=== PATIENT | female | born 1995 | race Caucasian/White ===

== ENCOUNTER 2020-05-30 08:05 | Inpatient (IN) ==
[2020-05-30] MEDS ORDERED: OXYTOCIN 30 UNITS/500 ML BAG IV PRN (08:12)
--- NOTE | 2020-05-30 08:19 | History & Physical Report ---
Date of Service May 30, 2020 Assessment & Plan (1) Supervision of normal intrauterine in primigravida: (2) Need for rhogam due to Rh negative mother: (3) Insulin controlled gestational diabetes mellitus (GDM) during , antepartum: (4) Group beta Strep positive: admit, iv, labs. plan glucoses through labor. pcn for gbs. pitocin induction, arom at later time. fhts categ 1. rhogam eval pp. Admission and Anticipated Discharge Date Admission Date: May 30, 2020 History of Present Illness Chief Complaint: planned induction of labor for gdm on insulin Primary Care Provider: Beryl Ragsdale MD 24yo at 39+wks ega with edc 06/03/20 presents to L&D with above cc. She denies rom, vb. +FM. no regular ctx Had balloon placed last evening for unfavorable cervix. She felt a lot of cramping about 3am and then that got better. Has not fallen out. Took 1/2 her insulin this am with her light breakfast. Fasting glucose today was 90. PNC c/b 1. rh neg, had rhogam, eval pp 2. gdm on insulin 3. oligo in early , resolved at 28wks 4. obesity 5. unable to view heart on routine anatomy, echo wnl 6. GBS positive. PNL rh neg, ri, gbs positive OBH: g1 GYNH: nl paps, no stds Allergies Allergy/AdvReac Type Severity Reaction Status Date / Time No Known Allergies Allergy Verified 05/27/20 09:39 Home Medications Medication Instructions Recorded Confirmed Type prenat.vits,dallin,gbs-[id number]-nrcob 1 tab PO DAILY 12/14/19 05/29/20 History acetone (urine) test #50 ea 01/19/20 05/27/20 Rx insulin aspart U-100 100 unit/mL 8 unit SUBCUT BID #15 ml 04/08/20 05/29/20 Rx (3 mL) subcutaneous pen pen needle, diabetic 32 gauge x #100 ea 04/11/20 05/27/20 Rx 32" breast pump #1 ea 05/10/20 05/27/20 Rx insulin NPH isoph U-100 human 12 unit SUBCUT QPM 05/29/20 05/29/20 History [Novolin N Flexpen] Patient History Medical History (Updated 05/30/20 @ 08:36 by Rocio Squires MD, FACOG) Need for rhogam due to Rh negative mother Oligohydramnios antepartum Surgical History (Updated 12/14/19 @ 13:22 by Debbie Paulino) S/P wisdom tooth extraction Social History Smoking Status: Former smoker Hx Alcohol Use: No Hx Substance Use: No Preferred Language: Pashto marital status: Single marital status details: contact pts mom Joanne [phone] Current Living Situation: Significant Other Current Living Situation Comment: lives with FOB, no pets. 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 Feels Safe at Home: Yes Physical Exam Constitutional: WD/WN, vitals as above Respiratory: normal respiratory effort, lungs clear to auscultation Cardiovascular: Rate/Rhythm: regular rate and regular rhythm Gastrointestinal (Abdomen): soft gravid nt, efw 7-8# Musculoskeletal: no edema nontender calves Neurologic: grossly normal Psychiatric: A+Ox3, euthymic affect Genitourinary: Manual OB Exam: + cervical dilation 3 cm, + cervical effacement 50% and + station (posterior) -2 OB Exam Monitor Tracing: + external FHT monitor used (155 mod variability), + external uterine monitor used (irreg), + category I and + normal FHT variability balloon was in vagina and deflated and removed from vagina. Coding Level of Care Code None Diagnoses Supervision of normal intrauterine in primigravida Z34.00 Need for rhogam due to Rh negative mother Z29.13 Insulin controlled gestational diabetes mellitus (GDM) during , antepartum O24.414 Group beta Strep positive B95.1
[2020-05-30] MEDS ORDERED: PENICILLIN G POTASSIUM 6 MU in DEXTROSE 5% 250 ML IV ONE (08:30)
[2020-05-30 08:52] LABS: Hematocrit (blood only) 37.4 % (37-47); Hemoglobin 12.6 g/dL (12.0-16.0); Mean Corpuscular Hemoglobin 26.8 pg (25-34); Mean Corpuscular Hgb Conc 33.7 g/dL (32-36); Mean Corpuscular Volume 79.6 fL (80-100); Mean Platelet Volume 12.8 fL (7.4-10.4); Platelet Count 170 K/uL (130-400); RDW Coefficient of Variation 14.6 % (11.5-14.5); RDW Standard Deviation 42.1 fL (36.4-46.3); White Blood Count 10.37 K/uL (4.8-10.8)
[2020-05-30] MEDS: LACTATED RINGER'S 1,000 ML IV PRN ×3 (09:00→16:40)
[2020-05-30 09:12] LABS: Alanine Aminotransferase 15 U/L (12-78); Albumin Level 2.6 gm/dl (3.4-5.0); Aspartate Aminotransferase 23 U/L (15-37); BUN Creatinine Ratio 9.4 (10-20); Bilirubin Direct < 0.1 mg/dl (0-0.2); Blood Urea Nitrogen 8 mg/dl (7-18); Calcium 8.4 mg/dl (8.5-10.1); Carbon Dioxide 18 mmol/L (21-32); Chloride 111 mmol/L (98-107); Est GFR (African American) 112.8; Est GFR (Non-African American) 97.3; Glucose 146 mg/dl (70-99); Potassium 3.7 mmol/L (3.5-5.1); Sodium 139 mmol/L (136-145)
[2020-05-30 09:15] LABS: Albumin Globulin Ratio 0.6 (0.9-2); Alkaline Phosphatase 132 U/L (45-117); Bilirubin,Total 0.4 mg/dl (0.2-1); Globulin 4.1 gm/dl (2.5-4.0); Total Protein 6.7 gm/dl (6.4-8.2)
[2020-05-30] MEDS: OXYTOCIN 30 UNITS/500 ML BAG IV PRN (09:30)
[2020-05-30] MEDS: PENICILLIN G POTASSIUM 3 MU in DEXTROSE 5% 100 ML IV PRN ×3 (13:03→20:34)
--- NOTE | 2020-05-30 13:38 | Labor Progress Brief Note ---
Date of Service May 30, 2020 Subjective Reason For Note: Routine Evaluation not too uncomfortable with uterine cramps. Assessment & Plan (1) Encounter for induction of labor: (2) Group beta Strep positive: (3) Insulin controlled gestational diabetes mellitus (GDM) during , antepartum: (4) Need for rhogam due to Rh negative mother: will see how arom helps labor pattern. fhts categ 1. c/w pit and pcn. Admission and Anticipated Discharge Date Admission Date: May 30, 2020 Physical Exam Constitutional: WD/WN, vitals as above Genitourinary: Manual OB Exam: + cervical dilation 3 cm, + cervical effacement 50%, + station -2 and + amniotic fluid (AROM clear) clear OB Exam Monitor Tra cing: + external FHT monitor used (120 mod variability), + external uterine monitor used (q3, pit at 15), + category I and + normal FHT variability Results & Data ([facility]) Vital Signs (Past 12 Hours) Vital Signs Temp Pulse Resp BP 05/30/20 13:32 84 138/87 05/30/20 13:02 81 113/55 L 05/30/20 12:31 98.6 F 85 18 127/64 05/30/20 12:03 93 H 129/64 05/30/20 11:32 85 140/63 05/30/20 11:00 85 126/68 05/30/20 10:31 87 122/71 05/30/20 09:31 99 H 135/87 05/30/20 08:55 97.5 F L 113 H 20 135/82 05/30/20 08:22 97.5 F L 113 H 20 135/82 Coding Level of Care Code None Diagnoses Encounter for induction of labor Z34.90 Group beta Strep positive B95.1 Insulin controlled gestational diabetes mellitus (GDM) during , antepartum O24.414 Need for rhogam due to Rh negative mother Z29.13
[2020-05-30] MEDS ORDERED: BUPIVACAINE 0.25% 30 ML VIAL ONE (16:13)
[2020-05-30] MEDS ORDERED: SODIUM CHLORIDE 0.9% INJ 10 ML VIAL ONE (16:13)
[2020-05-30] MEDS ORDERED: ePHEDrine sulfate 50 MG/ML AMP ONE (16:13)
[2020-05-30] MEDS ORDERED: fentaNYL citrate 100 MCG/2 ML VIAL ONE (16:14)
[2020-05-30] MEDS ORDERED: fentaNYL 2MCG/ML ROPIVACAINE 1.25MG/ML 100 ML BAG EPI ONE (16:14)
[2020-05-30] MEDS ORDERED: ONDANSETRON INJ 2 MG/ML 2 ML VIAL IV PRN (16:38)
[2020-05-30] MEDS ORDERED: diphenhydrAMINE 50 MG/ML VIAL IV PRN (16:38)
[2020-05-30] MEDS ORDERED: NALOXONE HCL 1 MG in SODIUM CHLORIDE 0.9% 1000ML 1,000 ML IV PRN (16:38)
[2020-05-30] MEDS ORDERED: NALOXONE HCL 0.4 MG/1 ML VIAL/CARP IV PRN (16:38)
[2020-05-30] MEDS ORDERED: ePHEDrine sulfate 50 MG/ML AMP IV PRN (16:38)
--- NOTE | 2020-05-30 16:40 | Anesthesiology Consultation ---
Date of Service May 30, 2020 Assessment & Plan (1) Encounter for pre-operative examination: Chart Review Chart Review: Acceptable Risk for Surgery and Patient NOT seen in Pre Admission Testing Consults Requested none History Height/Weight Height: 5 ft 5 in Weight: 106.594 kg Allergies Allergy/AdvReac Type Severity Reaction Status Date / Time No Known Allergies Allergy Verified 05/27/20 09:39 Medications Home Medications Medication Instructions Recorded Confirmed Last Taken prenat.vits,dallin,git-qtpm-uyasg 1 tab PO DAILY 12/14/19 05/30/20 05/30/20 07:00 acetone (urine) test #50 ea 01/19/20 05/27/20 Unknown insulin aspart U-100 100 unit/mL 8 unit SUBCUT BID #15 ml 04/08/20 05/30/20 05/30/20 07:00 (3 mL) subcutaneous pen pen needle, diabetic 32 gauge x #100 ea 04/11/20 05/27/20 Unknown 5/32" breast pump #1 ea 05/10/20 05/27/20 Unknown insulin NPH isoph U-100 human 12 unit SUBCUT QPM 05/29/20 05/30/20 05/29/20 22:30 [Novolin N Flexpen] Active Medications Generic Name Dose Route Start Last Admin Trade Name Freq PRN Reason Stop Dose Admin Oxytocin 30 units in 500 mls @ 17 mls/hr 05/30/20 08:12 05/30/20 14:05 Pitocin IV 06/01/20 08:11 1.02 units/hr .Q24H PRN 17 mls/hr Labor Induction/Augmentation Titration Protocol 1.02 UNITS/HR Penicillin G Potassium 3 mu/ 106 mls @ 100 mls/hr 05/30/20 08:12 05/30/20 13:03 Dextrose IV 06/09/20 08:11 100 mls/hr Q4H PRN Administration Give until delivery Lactated Ringer's 1,000 mls @ 125 mls/hr 05/30/20 08:12 05/30/20 16:39 Lr IV 06/01/20 08:11 125 mls/hr .Q8H PRN Administration L&D Protocol Protocol Past Medical History Medical History Need for rhogam due to Rh negative mother Oligohydramnios antepartum Exercise / Class Metabolic Activity II 4-5 Yardwork/Stairs/Walk up hill Past Surgical History Surgical History S/P wisdom tooth extraction Past Anesthesia History No Hx of Anesthesia Complications and No Family Hx of Anesthesia Complications History of PONV No Hx of PONV and No Hx of Motion Sickness Social History Smoking Status: Former smoker Do You Dip or Chew Tobacco: No Hx Alcohol Use: No Hx Substance Use: No substance use type: does not use Physical Exam Vital Signs Last Vital Signs Temp 37.0 C 05/30/20 12:31 Pulse 86 05/30/20 16:38 Resp 18 05/30/20 12:31 BP 144/83 H 05/30/20 16:38 Testing Laboratory Results 05/30/20 08:25 05/30/20 08:25 05/30/20 05/30/20 05/30/20 14:45 12:21 09:17 POC Glucose 83 66 L* 135 H
[2020-05-30] MEDS: fentaNYL 2MCG/ML ROPIVACAINE 1.25MG/ML 100 ML BAG EPI PRN (16:53)
--- NOTE | 2020-05-30 18:18 | Labor Progress Brief Note ---
Date of Service May 30, 2020 Subjective Reason For Note: Routine Evaluation comfortable with epidural Assessment & Plan (1) Encounter for induction of labor: (2) Group beta Strep positive: (3) Insulin controlled gestational diabetes mellitus (GDM) during , antepartum: c/w pit, will use iupc to help guide dosing by mvu's. last glucose check 84. c/w pcn for gbs. fhts categ 1. Admission and Anticipated Discharge Date Admission Date: May 30, 2020 Physical Exam Constitutional: WD/WN, vitals as above Genitourinary: Manual OB Exam: + cervical dilation 3 cm, + cervical effacement 50% and + station (posterior) -2 OB Exam Monitor Tracing: + external FHT monitor used (130 mod variability), + external uterine monitor used (q3-4. pit at 19), + category I and + normal FHT variability IUPC placed. Results & Data ([facility]) Vital Signs (Past 12 Hours) Vital Signs Temp Pulse Resp BP Pulse Ox 05/30/20 18:13 68 136/72 05/30/20 18:11 84 99 05/30/20 18:06 90 98 05/30/20 18:01 94 H 96 05/30/20 17:57 98.2 F 16 05/30/20 17:56 98.2 F 82 18 98 05/30/20 17:55 82 123/92 05/30/20 17:51 78 142/60 H 96 05/30/20 17:47 94 H 132/68 05/30/20 17:46 89 94 05/30/20 17:41 89 95 05/30/20 17:40 94 H 134/87 05/30/20 17:36 84 97 05/30/20 17:35 99 H 133/77 05/30/20 17:31 98 H 157/131 H 96 05/30/20 17:26 79 98 05/30/20 17:22 96 H 132/79 05/30/20 17:21 88 97 05/30/20 17:19 93 H 126/75 05/30/20 17:16 95 H 136/81 98 05/30/20 17:13 109 H 123/84 05/30/20 17:11 102 H 96 05/30/20 17:10 100 H 119/78 05/30/20 17:07 101 H 139/79 05/30/20 17:06 94 H 96 05/30/20 17:04 99 H 156/90 H 05/30/20 17:01 102 H 155/89 H 96 05/30/20 16:58 92 H 157/91 H 94 05/30/20 16:56 95 H 94 05/30/20 16:55 101 H 159/89 H 05/30/20 16:52 102 H 94 05/30/20 16:51 93 H 95 05/30/20 16:46 91 H 98 05/30/20 16:38 97.9 F 86 18 144/83 H 05/30/20 16:30 82 138/75 05/30/20 16:02 79 127/58 L 05/30/20 15:31 90 140/83 05/30/20 15:00 91 H 130/80 05/30/20 14:30 97.9 F 85 18 124/78 05/30/20 14:07 102 H 135/87 05/30/20 13:32 84 138/87 05/30/20 13:02 81 113/55 L 05/30/20 12:31 98.6 F 85 18 127/64 05/30/20 12:03 93 H 129/64 05/30/20 11:32 85 140/63 05/30/20 11:00 85 126/68 05/30/20 10:31 87 122/71 05/30/20 09:31 99 H 135/87 05/30/20 08:55 97.5 F L 113 H 20 135/82 05/30/20 08:22 97.5 F L 113 H 20 135/82 Coding Level of Care Code None Diagnoses Encounter for induction of labor Z34.90 Group beta Strep positive B95.1 Insulin controlled gestational diabetes mellitus (GDM) during , antepartum O24.414
--- NOTE | 2020-05-30 22:56 | Labor Progress Brief Note ---
Date of Service May 30, 2020 Subjective Reason For Note: Routine Evaluation comfortable, did get some sleep Assessment & Plan (1) Group beta Strep positive: (2) Encounter for induction of labor: (3) Insulin controlled gestational diabetes mellitus (GDM) during , antepartum: (4) Need for rhogam due to Rh negative mother: c/w pit, good cx change. fhts categ 1. pcn for gbs. Admission and Anticipated Discharge Date Admission Date: May 30, 2020 Physical Exam Constitutional: WD/WN, vitals as above Genitourinary: Manual OB Exam: + cervical dilation 5 cm, + cervical effacement (75%) and + station -1 OB Exam Monitor Tracing: + external FHT monitor used, + intra-uterine pressure catheter used (adeq mvus pit at 21), + category I and + normal FHT variability Results & Data ([facility]) Vital Signs (Past 12 Hours) Vital Signs Temp Pulse Resp BP Pulse Ox 05/30/20 22:51 80 98 05/30/20 22:46 77 94 05/30/20 22:41 81 118/57 L 94 05/30/20 22:36 85 94 05/30/20 22:31 82 95 05/30/20 22:26 81 119/59 L 96 05/30/20 22:24 84 94 05/30/20 22:21 85 97 05/30/20 22:16 82 97 05/30/20 22:13 80 114/59 L 05/30/20 22:12 83 94 05/30/20 22:11 78 97 05/30/20 22:06 79 96 05/30/20 22:01 88 96 05/30/20 21:59 90 135/60 05/30/20 21:56 86 97 05/30/20 21:51 85 98 05/30/20 21:46 90 99 05/30/20 21:43 85 131/59 L 05/30/20 21:41 84 98 05/30/20 21:36 88 98 05/30/20 21:31 84 93 05/30/20 21:27 78 117/56 L 05/30/20 21:26 76 94 05/30/20 21:23 89 94 05/30/20 21:21 90 93 05/30/20 21:16 82 94 05/30/20 21:13 76 93 05/30/20 21:11 82 94 05/30/20 21:06 81 94 05/30/20 21:01 80 95 05/30/20 21:00 98.1 F 18 05/30/20 20:58 78 116/57 L 05/30/20 20:56 79 95 05/30/20 20:51 75 95 05/30/20 20:46 76 97 05/30/20 20:43 82 114/55 L 05/30/20 20:41 75 96 05/30/20 20:36 75 97 05/30/20 20:31 83 98 05/30/20 20:28 69 142/77 H 05/30/20 20:26 76 99 05/30/20 20:21 82 96 05/30/20 20:16 97 H 97 05/30/20 20:13 96 H 132/86 05/30/20 20:11 90 98 05/30/20 20:06 80 99 05/30/20 20:01 95 H 99 05/30/20 19:59 110 H 140/87 05/30/20 19:56 98 H 95 05/30/20 19:51 88 95 05/30/20 19:46 91 H 96 05/30/20 19:43 93 H 146/83 H 05/30/20 19:41 81 96 05/30/20 19:36 98 H 95 05/30/20 19:31 80 97 05/30/20 19:27 93 H 106/64 05/30/20 19:26 90 96 05/30/20 19:21 85 97 05/30/20 19:16 89 96 05/30/20 19:12 97.9 F 86 18 137/80 05/30/20 19:11 101 H 98 05/30/20 19:06 76 99 05/30/20 19:02 87 94 05/30/20 19:01 80 95 05/30/20 18:58 109 H 125/82 05/30/20 18:56 74 96 05/30/20 18:51 85 96 05/30/20 18:46 95 H 95 05/30/20 18:44 87 115/79 05/30/20 18:41 98 H 96 05/30/20 18:36 75 94 05/30/20 18:32 84 94 05/30/20 18:31 88 96 05/30/20 18:30 104 H 143/91 H 05/30/20 18:26 84 95 05/30/20 18:21 95 H 96 05/30/20 18:16 83 97 05/30/20 18:13 68 136/72 05/30/20 18:11 84 99 05/30/20 18:06 90 98 05/30/20 18:01 94 H 96 05/30/20 17:57 98.2 F 82 16 123/92 96 05/30/20 17:56 98.2 F 82 18 98 05/30/20 17:55 82 123/92 05/30/20 17:51 78 142/60 H 96 05/30/20 17:47 94 H 132/68 05/30/20 17:46 89 94 05/30/20 17:41 89 95 05/30/20 17:40 94 H 134/87 05/30/20 17:36 84 97 05/30/20 17:35 99 H 133/77 05/30/20 17:31 98 H 157/131 H 96 05/30/20 17:26 79 98 05/30/20 17:22 96 H 132/79 05/30/20 17:21 88 97 05/30/20 17:19 93 H 126/75 05/30/20 17:16 95 H 136/81 98 05/30/20 17:13 109 H 123/84 05/30/20 17:11 102 H 96 05/30/20 17:10 100 H 119/78 05/30/20 17:07 101 H 139/79 05/30/20 17:06 94 H 96 05/30/20 17:04 99 H 156/90 H 05/30/20 17:01 102 H 155/89 H 96 05/30/20 16:58 92 H 157/91 H 94 05/30/20 16:56 95 H 94 05/30/20 16:55 101 H 159/89 H 05/30/20 16:52 102 H 94 05/30/20 16:51 93 H 95 05/30/20 16:46 91 H 98 05/30/20 16:38 97.9 F 86 18 144/83 H 05/30/20 16:30 82 138/75 05/30/20 16:02 79 127/58 L 05/30/20 15:31 90 140/83 05/30/20 15:00 91 H 130/80 05/30/20 14:30 97.9 F 85 18 124/78 05/30/20 14:07 102 H 135/87 05/30/20 13:32 84 138/87 05/30/20 13:02 81 113/55 L 05/30/20 12:31 98.6 F 85 18 127/64 05/30/20 12:03 93 H 129/64 05/30/20 11:32 85 140/63 05/30/20 11:00 85 126/68 Coding Level of Care Code None Diagnoses Group beta Strep positive B95.1 Encounter for induction of labor Z34.90 Insulin controlled gestational diabetes mellitus (GDM) during , antepartum O24.414 Need for rhogam due to Rh negative mother Z29.13
[2020-05-31] MEDS: PENICILLIN G POTASSIUM 3 MU in DEXTROSE 5% 100 ML IV PRN ×5 (00:55→17:24)
[2020-05-31] MEDS: LACTATED RINGER'S 1,000 ML IV PRN ×2 (03:01→13:08)
[2020-05-31] MEDS ORDERED: BUPIVACAINE 0.25% 30 ML VIAL ONE (04:23)
--- NOTE | 2020-05-31 04:53 | Communication Note ---
Date of Service: May 31, 2020 Called by nursing as pt rating contractions 8/10. Bolused a total of 10ml 0.5% bupivicaine in divided doses. BP stable. Pain very much improved 10-15 min after bolus. No complications.
--- NOTE | 2020-05-31 06:35 | Obstetrical Progress Note ---
Date of Service May 31, 2020 Assessment & Plan (1) Encounter for induction of labor: - PNL: Rh neg (rhogam received), RI, GBS pos (omtrapartum PCN), COVID neg - Feels well today. Eating well, voiding well, ambulating well - Pain well controlled with ibuprofen 600mg Q4H PRN - Routine care -- OOB, ambulation, diet progression as tolerated - After discharge will have 6 week follow-up with Dr. Squires (2) Group beta Strep positive: (3) Need for rhogam due to Rh negative mother: Alfonzo Ballard is a 24 y/o female who is PPD #1 following at 39+ weeks. She reports feeling well overall this morning. [_]abdominal cramping and [_]/10 pain well managed on analgesics. Voiding [_]. Tolerating meals overnight without difficulty. Patient has been able to ambulate some. [_] passing gas and [_] bowel movement. Has persistent lochia with [some] improvement this morning. Currently [] [bottle]. Review of Systems Denies fever or chills. Denies shortness of breath or cough. Denies chest pain. Denies breast pain. Denies dysuria. Denies leg pain or leg swelling. Denies headache or changes in vision. Physical Exam General: Alert, oriented. No acute distress. Cardiac: Regular rate and rhythm. No murmurs. Respiratory: Clear to auscultation bilaterally a/p, no wheezes/rales/rhonchi. No increased work of breathing. Symmetrical chest rise. No respiratory distress. Abdomen: Soft, nontender, nondistended. Bowel sounds present. Uterus: Uterine fundus firm, palpable 1 cm below umbilicus. Lower Extremities: No lower extremity edema or swelling. No deep calf pain. Yana's negative bilaterally. Results & Data ([facility]) Vital Signs (Past 12 Hours) Vital Signs Temp Pulse Resp BP Pulse Ox 05/31/20 06:29 94 H 94 05/31/20 06:26 96 H 95 05/31/20 06:25 106 H 154/89 H 05/31/20 06:22 105 H 94 05/31/20 06:21 98 H 94 05/31/20 06:16 99 H 94 05/31/20 06:11 92 H 144/87 H 94 05/31/20 06:06 101 H 94 05/31/20 06:05 96 H 94 05/31/20 06:01 100 H 93 05/31/20 05:57 97 H 18 143/83 H 05/31/20 05:56 96 H 93 05/31/20 05:51 100 H 93 05/31/20 05:46 100 H 92 05/31/20 05:41 93 H 93 05/31/20 05:40 99 H 141/69 H 05/31/20 05:36 98 H 92 05/31/20 05:31 105 H 93 05/31/20 05:30 96 H 144/74 H 05/31/20 05:26 93 H 93 05/31/20 05:21 101 H 92 05/31/20 05:16 99 H 93 05/31/20 05:11 96 H 92 05/31/20 05:06 102 H 92 05/31/20 05:01 101 H 93 05/31/20 04:56 104 H 94 05/31/20 04:51 91 H 93 05/31/20 04:48 87 94 05/31/20 04:46 93 H 96 05/31/20 04:41 91 H 96 05/31/20 04:38 91 H 138/70 05/31/20 04:36 99 H 150/74 H 96 05/31/20 04:34 98 H 149/77 H 05/31/20 04:33 98 H 94 05/31/20 04:32 91 H 149/78 H 05/31/20 04:31 37.1 C 92 H 18 95 05/31/20 04:30 99 H 147/73 H 05/31/20 04:28 96 H 155/75 H 05/31/20 04:27 93 H 152/74 H 94 05/31/20 04:26 93 H 94 05/31/20 04:21 94 H 95 05/31/20 04:20 95 H 94 05/31/20 04:16 89 95 05/31/20 04:14 108 H 148/92 H 93 05/31/20 04:11 95 H 95 05/31/20 04:08 106 H 94 05/31/20 04:06 94 H 93 05/31/20 04:01 97 H 93 05/31/20 03:57 93 H 150/82 H 05/31/20 03:56 90 93 05/31/20 03:54 86 94 05/31/20 03:51 85 93 05/31/20 03:48 89 94 05/31/20 03:46 91 H 93 05/31/20 03:44 97 H 150/72 H 05/31/20 03:42 88 94 05/31/20 03:41 93 H 95 05/31/20 03:36 97 H 95 05/31/20 03:35 90 94 05/31/20 03:31 87 93 05/31/20 03:29 89 94 05/31/20 03:27 95 H 142/72 H 05/31/20 03:26 100 H 95 05/31/20 03:23 92 H 94 05/31/20 03:21 88 93 05/31/20 03:16 92 H 92 05/31/20 03:12 98 H 128/74 05/31/20 03:11 102 H 93 05/31/20 03:09 86 94 05/31/20 03:06 90 92 05/31/20 03:04 95 H 94 05/31/20 03:01 94 H 94 05/31/20 02:58 36.5 C 94 H 18 131/78 93 05/31/20 02:56 95 H 94 05/31/20 02:52 97 H 94 05/31/20 02:51 108 H 93 05/31/20 02:46 99 H 93 05/31/20 02:43 98 H 140/74 05/31/20 02:41 100 H 92 05/31/20 02:40 89 93 05/31/20 02:36 94 H 94 05/31/20 02:35 85 94 05/31/20 02:31 101 H 93 05/31/20 02:28 93 H 146/72 H 05/31/20 02:26 95 H 92 05/31/20 02:24 113 H 94 05/31/20 02:21 97 H 93 05/31/20 02:19 99 H 93 05/31/20 02:16 113 H 96 05/31/20 02:13 96 H 149/77 H 05/31/20 02:11 97 H 93 05/31/20 02:06 91 H 91 05/31/20 02:01 111 H 94 05/31/20 01:57 100 H 140/82 05/31/20 01:56 105 H 94 05/31/20 01:55 94 H 94 05/31/20 01:51 96 H 94 05/31/20 01:46 100 H 95 05/31/20 01:44 96 H 94 05/31/20 01:42 103 H 131/76 05/31/20 01:41 97 H 95 05/31/20 01:36 117 H 96 05/31/20 01:33 94 H 94 05/31/20 01:31 92 H 95 05/31/20 01:28 100 H 125/69 05/31/20 01:27 90 93 05/31/20 01:26 111 H 95 05/31/20 01:22 103 H 94 05/31/20 01:21 101 H 95 05/31/20 01:18 18 05/31/20 01:16 98 H 93 05/31/20 01:12 98 H 137/79 05/31/20 01:11 103 H 92 05/31/20 01:10 99 H 94 05/31/20 01:06 102 H 93 05/31/20 01:05 94 H 94 05/31/20 01:01 111 H 95 05/31/20 00:59 106 H 93 05/31/20 00:57 100 H 133/76 05/31/20 00:56 99 H 94 05/31/20 00:54 100 H 150/78 H 05/31/20 00:53 36.6 C 18 05/31/20 00:51 89 96 05/31/20 00:46 83 96 05/31/20 00:41 95 H 95 05/31/20 00:38 83 94 05/31/20 00:36 84 93 05/31/20 00:31 80 93 05/31/20 00:26 82 93 05/31/20 00:21 82 93 05/31/20 00:16 93 H 94 05/31/20 00:15 86 94 05/31/20 00:14 76 118/59 L 05/31/20 00:11 82 93 05/31/20 00:06 82 93 05/31/20 00:04 86 94 05/31/20 00:01 81 92 05/30/20 23:58 93 H 127/60 05/30/20 23:56 77 94 05/30/20 23:51 85 92 05/30/20 23:46 85 92 05/30/20 23:43 84 118/67 05/30/20 23:41 84 92 05/30/20 23:36 78 93 05/30/20 23:31 75 93 05/30/20 23:28 79 92 05/30/20 23:27 91 H 113/57 L 05/30/20 23:26 83 93 05/30/20 23:21 81 93 05/30/20 23:16 78 93 05/30/20 23:12 81 94 05/30/20 23:11 94 H 96 05/30/20 23:06 77 94 05/30/20 23:02 80 94 05/30/20 23:01 37.1 C 87 18 94 05/30/20 22:58 90 138/78 05/30/20 22:57 90 94 05/30/20 22:56 99 H 95 05/30/20 22:51 80 98 05/30/20 22:46 77 94 05/30/20 22:41 81 118/57 L 94 05/30/20 22:36 85 94 05/30/20 22:31 82 95 05/30/20 22:26 81 119/59 L 96 05/30/20 22:24 84 94 05/30/20 22:21 85 97 05/30/20 22:16 82 97 05/30/20 22:13 80 114/59 L 05/30/20 22:12 83 94 05/30/20 22:11 78 97 05/30/20 22:06 79 96 05/30/20 22:01 88 96 05/30/20 21:59 90 135/60 05/30/20 21:56 86 97 05/30/20 21:51 85 98 05/30/20 21:46 90 99 05/30/20 21:43 85 131/59 L 05/30/20 21:41 84 98 05/30/20 21:36 88 98 05/30/20 21:31 84 93 05/30/20 21:27 78 117/56 L 05/30/20 21:26 76 94 05/30/20 21:23 89 94 05/30/20 21:21 90 93 05/30/20 21:16 82 94 05/30/20 21:13 76 93 05/30/20 21:11 82 94 05/30/20 21:06 81 94 05/30/20 21:01 80 95 05/30/20 21:00 36.7 C 18 05/30/20 20:58 78 116/57 L 05/30/20 20:56 79 95 05/30/20 20:51 75 95 05/30/20 20:46 76 97 05/30/20 20:43 82 114/55 L 05/30/20 20:41 75 96 05/30/20 20:36 75 97 05/30/20 20:31 83 98 05/30/20 20:28 69 142/77 H 05/30/20 20:26 76 99 05/30/20 20:21 82 96 05/30/20 20:16 97 H 97 05/30/20 20:13 96 H 132/86 05/30/20 20:11 90 98 05/30/20 20:06 80 99 05/30/20 20:01 95 H 99 05/30/20 19:59 110 H 140/87 05/30/20 19:56 98 H 95 05/30/20 19:51 88 95 05/30/20 19:46 91 H 96 05/30/20 19:43 93 H 146/83 H 05/30/20 19:41 81 96 05/30/20 19:36 98 H 95 05/30/20 19:31 80 97 05/30/20 19:27 93 H 106/64 05/30/20 19:26 90 96 05/30/20 19:21 85 97 05/30/20 19:16 89 96 05/30/20 19:12 36.6 C 86 18 137/80 05/30/20 19:11 101 H 98 05/30/20 19:06 76 99 05/30/20 19:02 87 94 05/30/20 19:01 80 95 05/30/20 18:58 109 H 125/82 05/30/20 18:56 74 96 05/30/20 18:51 85 96 05/30/20 18:46 95 H 95 05/30/20 18:44 87 115/79 05/30/20 18:41 98 H 96 05/30/20 18:36 75 94
--- NOTE | 2020-05-31 06:53 | Labor Progress Brief Note ---
Date of Service May 31, 2020 Subjective Reason For Note: Routine Evaluation pt comfortable, can sense some ctx. Assessment & Plan (1) Encounter for induction of labor: (2) Group beta Strep positive: (3) Insulin controlled gestational diabetes mellitus (GDM) during , antepartum: (4) Need for rhogam due to Rh negative mother: will 1/2 pit and reelevate to try to get mvu's adeq. my exam is improved from my last. much more effaced and cephalic is low. will cont to try to advance labor. fhts categ 1. pcn for gbs pos. Admission and Anticipated Discharge Date Admission Date: May 30, 2020 Physical Exam Constitutional: WD/WN, vitals as above Genitourinary: Manual OB Exam: + cervical dilation (5-6), + cervical effacement 90% and + station 0 OB Exam Monitor Tracing: + external uterine monitor used (q3 mvu's inadeq, pit at 15), + intra-uterine pressure catheter used (mvu's inadeq, pit at 15), + category I and + normal FHT variability Results & Data ([facility]) Vital Signs (Past 12 Hours) Vital Signs Temp Pulse Resp BP Pulse Ox 05/31/20 06:46 92 H 97 05/31/20 06:42 106 H 144/81 H 05/31/20 06:41 99 H 94 05/31/20 06:36 97 H 94 05/31/20 06:35 98 H 94 05/31/20 06:31 92 H 94 05/31/20 06:29 94 H 94 05/31/20 06:26 96 H 95 05/31/20 06:25 106 H 154/89 H 05/31/20 06:22 105 H 94 05/31/20 06:21 98 H 94 05/31/20 06:16 99 H 94 05/31/20 06:11 92 H 144/87 H 94 05/31/20 06:06 101 H 94 05/31/20 06:05 96 H 94 05/31/20 06:01 100 H 93 05/31/20 05:57 97 H 18 143/83 H 05/31/20 05:56 96 H 93 05/31/20 05:51 100 H 93 05/31/20 05:46 100 H 92 05/31/20 05:41 93 H 93 05/31/20 05:40 99 H 141/69 H 05/31/20 05:36 98 H 92 05/31/20 05:31 105 H 93 05/31/20 05:30 96 H 144/74 H 05/31/20 05:26 93 H 93 05/31/20 05:21 101 H 92 05/31/20 05:16 99 H 93 05/31/20 05:11 96 H 92 05/31/20 05:06 102 H 92 05/31/20 05:01 101 H 93 05/31/20 04:56 104 H 94 05/31/20 04:51 91 H 93 05/31/20 04:48 87 94 05/31/20 04:46 93 H 96 05/31/20 04:41 91 H 96 05/31/20 04:38 91 H 138/70 05/31/20 04:36 99 H 150/74 H 96 05/31/20 04:34 98 H 149/77 H 05/31/20 04:33 98 H 94 05/31/20 04:32 91 H 149/78 H 05/31/20 04:31 98.8 F 92 H 18 95 05/31/20 04:30 99 H 147/73 H 05/31/20 04:28 96 H 155/75 H 05/31/20 04:27 93 H 152/74 H 94 05/31/20 04:26 93 H 94 05/31/20 04:21 94 H 95 05/31/20 04:20 95 H 94 05/31/20 04:16 89 95 05/31/20 04:14 108 H 148/92 H 93 05/31/20 04:11 95 H 95 05/31/20 04:08 106 H 94 05/31/20 04:06 94 H 93 05/31/20 04:01 97 H 93 05/31/20 03:57 93 H 150/82 H 05/31/20 03:56 90 93 05/31/20 03:54 86 94 05/31/20 03:51 85 93 05/31/20 03:48 89 94 05/31/20 03:46 91 H 93 05/31/20 03:44 97 H 150/72 H 05/31/20 03:42 88 94 05/31/20 03:41 93 H 95 05/31/20 03:36 97 H 95 05/31/20 03:35 90 94 05/31/20 03:31 87 93 05/31/20 03:29 89 94 05/31/20 03:27 95 H 142/72 H 05/31/20 03:26 100 H 95 05/31/20 03:23 92 H 94 05/31/20 03:21 88 93 05/31/20 03:16 92 H 92 05/31/20 03:12 98 H 128/74 05/31/20 03:11 102 H 93 05/31/20 03:09 86 94 05/31/20 03:06 90 92 05/31/20 03:04 95 H 94 05/31/20 03:01 94 H 94 05/31/20 02:58 97.7 F 94 H 18 131/78 93 05/31/20 02:56 95 H 94 05/31/20 02:52 97 H 94 05/31/20 02:51 108 H 93 05/31/20 02:46 99 H 93 05/31/20 02:43 98 H 140/74 05/31/20 02:41 100 H 92 05/31/20 02:40 89 93 05/31/20 02:36 94 H 94 05/31/20 02:35 85 94 05/31/20 02:31 101 H 93 05/31/20 02:28 93 H 146/72 H 05/31/20 02:26 95 H 92 05/31/20 02:24 113 H 94 05/31/20 02:21 97 H 93 05/31/20 02:19 99 H 93 05/31/20 02:16 113 H 96 05/31/20 02:13 96 H 149/77 H 05/31/20 02:11 97 H 93 05/31/20 02:06 91 H 91 05/31/20 02:01 111 H 94 05/31/20 01:57 100 H 140/82 05/31/20 01:56 105 H 94 05/31/20 01:55 94 H 94 05/31/20 01:51 96 H 94 05/31/20 01:46 100 H 95 05/31/20 01:44 96 H 94 05/31/20 01:42 103 H 131/76 05/31/20 01:41 97 H 95 05/31/20 01:36 117 H 96 05/31/20 01:33 94 H 94 05/31/20 01:31 92 H 95 05/31/20 01:28 100 H 125/69 05/31/20 01:27 90 93 05/31/20 01:26 111 H 95 05/31/20 01:22 103 H 94 05/31/20 01:21 101 H 95 05/31/20 01:18 18 05/31/20 01:16 98 H 93 05/31/20 01:12 98 H 137/79 05/31/20 01:11 103 H 92 05/31/20 01:10 99 H 94 05/31/20 01:06 102 H 93 05/31/20 01:05 94 H 94 05/31/20 01:01 111 H 95 05/31/20 00:59 106 H 93 05/31/20 00:57 100 H 133/76 05/31/20 00:56 99 H 94 05/31/20 00:54 100 H 150/78 H 05/31/20 00:53 97.9 F 18 05/31/20 00:51 89 96 05/31/20 00:46 83 96 05/31/20 00:41 95 H 95 05/31/20 00:38 83 94 05/31/20 00:36 84 93 05/31/20 00:31 80 93 05/31/20 00:26 82 93 05/31/20 00:21 82 93 05/31/20 00:16 93 H 94 05/31/20 00:15 86 94 05/31/20 00:14 76 118/59 L 05/31/20 00:11 82 93 05/31/20 00:06 82 93 05/31/20 00:04 86 94 05/31/20 00:01 81 92 05/30/20 23:58 93 H 127/60 05/30/20 23:56 77 94 05/30/20 23:51 85 92 05/30/20 23:46 85 92 05/30/20 23:43 84 118/67 05/30/20 23:41 84 92 05/30/20 23:36 78 93 05/30/20 23:31 75 93 05/30/20 23:28 79 92 05/30/20 23:27 91 H 113/57 L 05/30/20 23:26 83 93 05/30/20 23:21 81 93 05/30/20 23:16 78 93 05/30/20 23:12 81 94 05/30/20 23:11 94 H 96 05/30/20 23:06 77 94 05/30/20 23:02 80 94 05/30/20 23:01 98.8 F 87 18 94 05/30/20 22:58 90 138/78 05/30/20 22:57 90 94 05/30/20 22:56 99 H 95 05/30/20 22:51 80 98 05/30/20 22:46 77 94 05/30/20 22:41 81 118/57 L 94 05/30/20 22:36 85 94 05/30/20 22:31 82 95 05/30/20 22:26 81 119/59 L 96 05/30/20 22:24 84 94 05/30/20 22:21 85 97 05/30/20 22:16 82 97 05/30/20 22:13 80 114/59 L 05/30/20 22:12 83 94 05/30/20 22:11 78 97 05/30/20 22:06 79 96 05/30/20 22:01 88 96 05/30/20 21:59 90 135/60 05/30/20 21:56 86 97 05/30/20 21:51 85 98 05/30/20 21:46 90 99 05/30/20 21:43 85 131/59 L 05/30/20 21:41 84 98 05/30/20 21:36 88 98 05/30/20 21:31 84 93 05/30/20 21:27 78 117/56 L 05/30/20 21:26 76 94 05/30/20 21:23 89 94 05/30/20 21:21 90 93 05/30/20 21:16 82 94 05/30/20 21:13 76 93 05/30/20 21:11 82 94 05/30/20 21:06 81 94 05/30/20 21:01 80 95 05/30/20 21:00 98.1 F 18 05/30/20 20:58 78 116/57 L 05/30/20 20:56 79 95 05/30/20 20:51 75 95 05/30/20 20:46 76 97 05/30/20 20:43 82 114/55 L 05/30/20 20:41 75 96 05/30/20 20:36 75 97 05/30/20 20:31 83 98 05/30/20 20:28 69 142/77 H 05/30/20 20:26 76 99 05/30/20 20:21 82 96 05/30/20 20:16 97 H 97 05/30/20 20:13 96 H 132/86 05/30/20 20:11 90 98 05/30/20 20:06 80 99 05/30/20 20:01 95 H 99 05/30/20 19:59 110 H 140/87 05/30/20 19:56 98 H 95 05/30/20 19:51 88 95 05/30/20 19:46 91 H 96 05/30/20 19:43 93 H 146/83 H 05/30/20 19:41 81 96 05/30/20 19:36 98 H 95 05/30/20 19:31 80 97 05/30/20 19:27 93 H 106/64 05/30/20 19:26 90 96 05/30/20 19:21 85 97 05/30/20 19:16 89 96 05/30/20 19:12 97.9 F 86 18 137/80 05/30/20 19:11 101 H 98 05/30/20 19:06 76 99 05/30/20 19:02 87 94 05/30/20 19:01 80 95 05/30/20 18:58 109 H 125/82 05/30/20 18:56 74 96 Coding Level of Care Code None Diagnoses Encounter for induction of labor Z34.90 Group beta Strep positive B95.1 Insulin controlled gestational diabetes mellitus (GDM) during , antepartum O24.414 Need for rhogam due to Rh negative mother Z29.13
[2020-05-31] MEDS: fentaNYL 2MCG/ML ROPIVACAINE 1.25MG/ML 100 ML BAG EPI PRN ×2 (07:36→14:12)
--- NOTE | 2020-05-31 09:10 | Labor Progress Brief Note ---
Date of Service May 31, 2020 Subjective Doing ok, feeling a little bit of ctx pain in lower abd but tolerable. Assessment & Plan (1) Encounter for induction of labor: 24 y/o G1 at 39 4/7 wga, IOL for A2GDM VSS Fetus cat 1 Labor - pit at 19, halved earlier after went up to 29 overnight. Continue to titrate as MVUs not adequate, exam does not feel like molding, possibly asynclitic. Continue maternal repositioning GBS +, PCN Epidural in place (2) Insulin controlled gestational diabetes mellitus (GDM) during , antepartum: Will check BG now as it has been a while, will continue to monitor Admission and Anticipated Discharge Date Admission Date: May 30, 2020 Physical Exam Constitutional: WD/WN, vitals as above Respiratory: normal respiratory effort; no respiratory distress and no labored breathing Genitourinary: Manual OB Exam: + cervical dilation 5 cm, + cervical effacement 80% and + station 0 OB Exam Monitor Tracing: + external FHT monitor used, + intra-uterine pressure catheter used (MVUs inadequate, q3min) and + category I (130/mod/+accel/-decel) Results & Data ([facility]) Vital Signs (Past 12 Hours) Vital Signs Temp Pulse Resp BP Pulse Ox 05/31/20 09:01 105 H 97 05/31/20 08:56 73 133/87 97 05/31/20 08:54 74 94 05/31/20 08:51 76 96 05/31/20 08:46 81 94 05/31/20 08:42 65 93 05/31/20 08:41 104 H 138/64 96 05/31/20 08:36 86 94 05/31/20 08:33 71 94 05/31/20 08:31 98 H 97 05/31/20 08:26 78 94 05/31/20 08:25 83 130/67 05/31/20 08:22 100 H 94 05/31/20 08:21 78 94 05/31/20 08:16 75 94 05/31/20 08:15 98 H 94 05/31/20 08:12 88 136/67 05/31/20 08:11 78 94 05/31/20 08:09 74 94 05/31/20 08:06 80 94 05/31/20 08:04 81 94 05/31/20 08:01 98 H 95 03/16/21 07:58 76 94 05/31/20 07:56 94 H 127/72 95 05/31/20 07:53 82 94 05/31/20 07:51 105 H 95 05/31/20 07:47 69 93 05/31/20 07:46 78 96 05/31/20 07:42 70 125/66 05/31/20 07:41 81 96 05/31/20 07:36 81 96 05/31/20 07:31 87 97 05/31/20 07:26 88 131/61 97 05/31/20 07:21 86 95 05/31/20 07:17 85 94 05/31/20 07:16 84 95 05/31/20 07:11 89 129/67 95 05/31/20 07:06 90 97 05/31/20 07:01 87 97 05/31/20 06:56 97 H 136/80 94 05/31/20 06:51 97 H 96 05/31/20 06:46 92 H 97 05/31/20 06:42 106 H 144/81 H 05/31/20 06:41 99 H 94 05/31/20 06:36 97 H 94 05/31/20 06:35 98 H 94 05/31/20 06:31 92 H 94 05/31/20 06:29 94 H 94 05/31/20 06:26 96 H 95 05/31/20 06:25 106 H 154/89 H 05/31/20 06:22 105 H 94 05/31/20 06:21 98 H 94 05/31/20 06:16 99 H 94 05/31/20 06:15 98.1 F 18 05/31/20 06:11 92 H 144/87 H 94 05/31/20 06:06 101 H 94 05/31/20 06:05 96 H 94 05/31/20 06:01 100 H 93 05/31/20 05:57 97 H 18 143/83 H 05/31/20 05:56 96 H 93 05/31/20 05:51 100 H 93 05/31/20 05:46 100 H 92 05/31/20 05:41 93 H 93 05/31/20 05:40 99 H 141/69 H 05/31/20 05:36 98 H 92 05/31/20 05:31 105 H 93 05/31/20 05:30 96 H 144/74 H 05/31/20 05:26 93 H 93 05/31/20 05:21 101 H 92 05/31/20 05:16 99 H 93 05/31/20 05:11 96 H 92 05/31/20 05:06 102 H 92 05/31/20 05:01 101 H 93 05/31/20 04:56 104 H 94 05/31/20 04:51 91 H 93 05/31/20 04:48 87 94 05/31/20 04:46 93 H 96 05/31/20 04:41 91 H 96 05/31/20 04:38 91 H 138/70 05/31/20 04:36 99 H 150/74 H 96 05/31/20 04:34 98 H 149/77 H 05/31/20 04:33 98 H 94 05/31/20 04:32 91 H 149/78 H 05/31/20 04:31 98.8 F 92 H 18 95 05/31/20 04:30 99 H 147/73 H 05/31/20 04:28 96 H 155/75 H 05/31/20 04:27 93 H 152/74 H 94 05/31/20 04:26 93 H 94 05/31/20 04:21 94 H 95 05/31/20 04:20 95 H 94 05/31/20 04:16 89 95 05/31/20 04:14 108 H 148/92 H 93 05/31/20 04:11 95 H 95 05/31/20 04:08 106 H 94 05/31/20 04:06 94 H 93 05/31/20 04:01 97 H 93 05/31/20 03:57 93 H 150/82 H 05/31/20 03:56 90 93 05/31/20 03:54 86 94 05/31/20 03:51 85 93 05/31/20 03:48 89 94 05/31/20 03:46 91 H 93 05/31/20 03:44 97 H 150/72 H 05/31/20 03:42 88 94 05/31/20 03:41 93 H 95 05/31/20 03:36 97 H 95 05/31/20 03:35 90 94 05/31/20 03:31 87 93 05/31/20 03:29 89 94 05/31/20 03:27 95 H 142/72 H 05/31/20 03:26 100 H 95 05/31/20 03:23 92 H 94 05/31/20 03:21 88 93 05/31/20 03:16 92 H 92 05/31/20 03:12 98 H 128/74 05/31/20 03:11 102 H 93 05/31/20 03:09 86 94 05/31/20 03:06 90 92 05/31/20 03:04 95 H 94 05/31/20 03:01 94 H 94 05/31/20 02:58 97.7 F 94 H 18 131/78 93 05/31/20 02:56 95 H 94 05/31/20 02:52 97 H 94 05/31/20 02:51 108 H 93 05/31/20 02:46 99 H 93 05/31/20 02:43 98 H 140/74 05/31/20 02:41 100 H 92 05/31/20 02:40 89 93 05/31/20 02:36 94 H 94 05/31/20 02:35 85 94 05/31/20 02:31 101 H 93 05/31/20 02:28 93 H 146/72 H 05/31/20 02:26 95 H 92 05/31/20 02:24 113 H 94 05/31/20 02:21 97 H 93 05/31/20 02:19 99 H 93 05/31/20 02:16 113 H 96 05/31/20 02:13 96 H 149/77 H 05/31/20 02:11 97 H 93 05/31/20 02:06 91 H 91 05/31/20 02:01 111 H 94 05/31/20 01:57 100 H 140/82 05/31/20 01:56 105 H 94 05/31/20 01:55 94 H 94 05/31/20 01:51 96 H 94 05/31/20 01:46 100 H 95 05/31/20 01:44 96 H 94 05/31/20 01:42 103 H 131/76 05/31/20 01:41 97 H 95 05/31/20 01:36 117 H 96 05/31/20 01:33 94 H 94 05/31/20 01:31 92 H 95 05/31/20 01:28 100 H 125/69 05/31/20 01:27 90 93 05/31/20 01:26 111 H 95 05/31/20 01:22 103 H 94 05/31/20 01:21 101 H 95 05/31/20 01:18 18 05/31/20 01:16 98 H 93 05/31/20 01:12 98 H 137/79 05/31/20 01:11 103 H 92 05/31/20 01:10 99 H 94 05/31/20 01:06 102 H 93 05/31/20 01:05 94 H 94 05/31/20 01:01 111 H 95 05/31/20 00:59 106 H 93 05/31/20 00:57 100 H 133/76 05/31/20 00:56 99 H 94 05/31/20 00:54 100 H 150/78 H 05/31/20 00:53 97.9 F 18 05/31/20 00:51 89 96 05/31/20 00:46 83 96 05/31/20 00:41 95 H 95 05/31/20 00:38 83 94 05/31/20 00:36 84 93 05/31/20 00:31 80 93 05/31/20 00:26 82 93 05/31/20 00:21 82 93 05/31/20 00:16 93 H 94 05/31/20 00:15 86 94 05/31/20 00:14 76 118/59 L 05/31/20 00:11 82 93 05/31/20 00:06 82 93 05/31/20 00:04 86 94 05/31/20 00:01 81 92 05/30/20 23:58 93 H 127/60 05/30/20 23:56 77 94 05/30/20 23:51 85 92 05/30/20 23:46 85 92 05/30/20 23:43 84 118/67 05/30/20 23:41 84 92 05/30/20 23:36 78 93 05/30/20 23:31 75 93 05/30/20 23:28 79 92 05/30/20 23:27 91 H 113/57 L 05/30/20 23:26 83 93 05/30/20 23:21 81 93 05/30/20 23:16 78 93 05/30/20 23:12 81 94 05/30/20 23:11 94 H 96 05/30/20 23:06 77 94 05/30/20 23:02 80 94 05/30/20 23:01 98.8 F 87 18 94 05/30/20 22:58 90 138/78 05/30/20 22:57 90 94 05/30/20 22:56 99 H 95 05/30/20 22:51 80 98 05/30/20 22:46 77 94 05/30/20 22:41 81 118/57 L 94 05/30/20 22:36 85 94 05/30/20 22:31 82 95 05/30/20 22:26 81 119/59 L 96 05/30/20 22:24 84 94 05/30/20 22:21 85 97 05/30/20 22:16 82 97 05/30/20 22:13 80 114/59 L 05/30/20 22:12 83 94 05/30/20 22:11 78 97 05/30/20 22:06 79 96 05/30/20 22:01 88 96 05/30/20 21:59 90 135/60 05/30/20 21:56 86 97 05/30/20 21:51 85 98 05/30/20 21:46 90 99 05/30/20 21:43 85 131/59 L 05/30/20 21:41 84 98 05/30/20 21:36 88 98 05/30/20 21:31 84 93 05/30/20 21:27 78 117/56 L 05/30/20 21:26 76 94 05/30/20 21:23 89 94 05/30/20 21:21 90 93 05/30/20 21:16 82 94 05/30/20 21:13 76 93 05/30/20 21:11 82 94 05/30/20 21:06 81 94 Coding Level of Care Code None Diagnoses Encounter for induction of labor Z34.90 Insulin controlled gestational diabetes mellitus (GDM) during , antepartum O24.414
[2020-05-31] MEDS: OXYTOCIN 30 UNITS/500 ML BAG IV PRN (10:08)
--- NOTE | 2020-05-31 11:44 | Labor Progress Brief Note ---
Date of Service May 31, 2020 Subjective Able to get some rest Assessment & Plan (1) Encounter for induction of labor: 24 y/o G1 at 39 4/7 wga, IOL for A2GDM VSS Fetus cat 1 Labor - cervix thinner than prior exam, continue repositioning, pt amenable with continuing GBS +, PCN Epidural in place (2) Insulin controlled gestational diabetes mellitus (GDM) during , antepartum: Will check BG now as it has been a while, will continue to monitor Admission and Anticipated Discharge Date Admission Date: May 30, 2020 Physical Exam Constitutional: WD/WN, vitals as above Respiratory: normal respiratory effort; no respiratory distress and no labored breathing Genitourinary: Manual OB Exam: + cervical dilation 5 cm, + cervical effacement 80% and + station 0 OB Exam Monitor Tracing: + external FHT monitor used, + intra-uterine pressure catheter used (MVUs intermittently adequate and inadequate, q3min) and + category I (135/mod/+accel/-decel) Results & Data ([facility]) Vital Signs (Past 12 Hours) Vital Signs Temp Pulse Resp BP Pulse Ox 05/31/20 11:40 85 144/71 H 05/31/20 11:36 87 97 05/31/20 11:31 94 H 97 05/31/20 11:26 100 H 98 05/31/20 11:21 74 95 05/31/20 11:16 70 95 05/31/20 11:11 104 H 95 05/31/20 11:10 90 138/75 05/31/20 11:06 79 96 05/31/20 11:01 88 96 05/31/20 10:56 95 H 95 05/31/20 10:51 89 95 05/31/20 10:46 87 95 05/31/20 10:41 92 H 94 05/31/20 10:40 82 142/72 H 05/31/20 10:36 88 94 05/31/20 10:31 86 94 05/31/20 10:26 91 H 94 05/31/20 10:21 92 H 93 05/31/20 10:16 93 H 93 05/31/20 10:11 96 H 94 05/31/20 10:06 87 94 05/31/20 10:01 90 94 05/31/20 09:57 83 132/63 05/31/20 09:56 86 93 05/31/20 09:51 85 94 05/31/20 09:46 97 H 94 05/31/20 09:41 73 94 05/31/20 09:40 89 125/67 05/31/20 09:36 96 H 92 05/31/20 09:31 94 H 93 05/31/20 09:27 82 123/64 05/31/20 09:26 84 93 05/31/20 09:21 86 93 05/31/20 09:16 88 94 05/31/20 09:14 88 94 05/31/20 09:11 81 132/77 96 05/31/20 09:06 94 H 96 05/31/20 09:01 105 H 97 05/31/20 08:56 73 133/87 97 05/31/20 08:54 74 94 05/31/20 08:51 76 96 05/31/20 08:46 81 94 05/31/20 08:42 65 93 05/31/20 08:41 104 H 138/64 96 05/31/20 08:36 86 94 05/31/20 08:33 71 94 05/31/20 08:31 98 H 97 05/31/20 08:26 78 94 05/31/20 08:25 83 130/67 05/31/20 08:22 100 H 94 05/31/20 08:21 78 94 05/31/20 08:16 75 94 05/31/20 08:15 98 H 94 05/31/20 08:12 88 136/67 05/31/20 08:11 78 94 05/31/20 08:09 74 94 05/31/20 08:06 80 94 05/31/20 08:04 81 94 05/31/20 08:01 98 H 95 05/31/20 07:58 76 94 05/31/20 07:56 94 H 127/72 95 05/31/20 07:53 82 94 05/31/20 07:51 105 H 95 05/31/20 07:47 69 93 05/31/20 07:46 78 96 05/31/20 07:42 70 125/66 05/31/20 07:41 81 96 05/31/20 07:36 81 96 05/31/20 07:31 87 97 05/31/20 07:26 88 131/61 97 05/31/20 07:21 86 95 05/31/20 07:17 85 94 05/31/20 07:16 84 95 05/31/20 07:11 89 129/67 95 05/31/20 07:06 90 97 05/31/20 07:01 87 97 05/31/20 06:56 97 H 136/80 94 05/31/20 06:51 97 H 96 05/31/20 06:46 92 H 97 05/31/20 06:42 106 H 144/81 H 05/31/20 06:41 99 H 94 05/31/20 06:36 97 H 94 05/31/20 06:35 98 H 94 05/31/20 06:31 92 H 94 05/31/20 06:29 94 H 94 05/31/20 06:26 96 H 95 05/31/20 06:25 106 H 154/89 H 05/31/20 06:22 105 H 94 05/31/20 06:21 98 H 94 05/31/20 06:16 99 H 94 05/31/20 06:15 98.1 F 18 05/31/20 06:11 92 H 144/87 H 94 05/31/20 06:06 101 H 94 05/31/20 06:05 96 H 94 05/31/20 06:01 100 H 93 05/31/20 05:57 97 H 18 143/83 H 05/31/20 05:56 96 H 93 05/31/20 05:51 100 H 93 05/31/20 05:46 100 H 92 05/31/20 05:41 93 H 93 05/31/20 05:40 99 H 141/69 H 05/31/20 05:36 98 H 92 05/31/20 05:31 105 H 93 05/31/20 05:30 96 H 144/74 H 05/31/20 05:26 93 H 93 05/31/20 05:21 101 H 92 05/31/20 05:16 99 H 93 05/31/20 05:11 96 H 92 05/31/20 05:06 102 H 92 05/31/20 05:01 101 H 93 05/31/20 04:56 104 H 94 05/31/20 04:51 91 H 93 05/31/20 04:48 87 94 05/31/20 04:46 93 H 96 05/31/20 04:41 91 H 96 05/31/20 04:38 91 H 138/70 05/31/20 04:36 99 H 150/74 H 96 05/31/20 04:34 98 H 149/77 H 05/31/20 04:33 98 H 94 05/31/20 04:32 91 H 149/78 H 05/31/20 04:31 98.8 F 92 H 18 95 05/31/20 04:30 99 H 147/73 H 05/31/20 04:28 96 H 155/75 H 05/31/20 04:27 93 H 152/74 H 94 05/31/20 04:26 93 H 94 05/31/20 04:21 94 H 95 05/31/20 04:20 95 H 94 05/31/20 04:16 89 95 05/31/20 04:14 108 H 148/92 H 93 05/31/20 04:11 95 H 95 05/31/20 04:08 106 H 94 05/31/20 04:06 94 H 93 05/31/20 04:01 97 H 93 05/31/20 03:57 93 H 150/82 H 05/31/20 03:56 90 93 05/31/20 03:54 86 94 05/31/20 03:51 85 93 05/31/20 03:48 89 94 05/31/20 03:46 91 H 93 05/31/20 03:44 97 H 150/72 H 05/31/20 03:42 88 94 05/31/20 03:41 93 H 95 05/31/20 03:36 97 H 95 05/31/20 03:35 90 94 05/31/20 03:31 87 93 05/31/20 03:29 89 94 05/31/20 03:27 95 H 142/72 H 05/31/20 03:26 100 H 95 05/31/20 03:23 92 H 94 05/31/20 03:21 88 93 05/31/20 03:16 92 H 92 05/31/20 03:12 98 H 128/74 05/31/20 03:11 102 H 93 05/31/20 03:09 86 94 05/31/20 03:06 90 92 05/31/20 03:04 95 H 94 05/31/20 03:01 94 H 94 05/31/20 02:58 97.7 F 94 H 18 131/78 93 05/31/20 02:56 95 H 94 05/31/20 02:52 97 H 94 05/31/20 02:51 108 H 93 05/31/20 02:46 99 H 93 05/31/20 02:43 98 H 140/74 05/31/20 02:41 100 H 92 05/31/20 02:40 89 93 05/31/20 02:36 94 H 94 05/31/20 02:35 85 94 05/31/20 02:31 101 H 93 05/31/20 02:28 93 H 146/72 H 05/31/20 02:26 95 H 92 05/31/20 02:24 113 H 94 05/31/20 02:21 97 H 93 05/31/20 02:19 99 H 93 05/31/20 02:16 113 H 96 05/31/20 02:13 96 H 149/77 H 05/31/20 02:11 97 H 93 05/31/20 02:06 91 H 91 05/31/20 02:01 111 H 94 05/31/20 01:57 100 H 140/82 05/31/20 01:56 105 H 94 05/31/20 01:55 94 H 94 05/31/20 01:51 96 H 94 05/31/20 01:46 100 H 95 05/31/20 01:44 96 H 94 05/31/20 01:42 103 H 131/76 05/31/20 01:41 97 H 95 05/31/20 01:36 117 H 96 05/31/20 01:33 94 H 94 05/31/20 01:31 92 H 95 05/31/20 01:28 100 H 125/69 05/31/20 01:27 90 93 05/31/20 01:26 111 H 95 05/31/20 01:22 103 H 94 05/31/20 01:21 101 H 95 05/31/20 01:18 18 05/31/20 01:16 98 H 93 05/31/20 01:12 98 H 137/79 05/31/20 01:11 103 H 92 05/31/20 01:10 99 H 94 05/31/20 01:06 102 H 93 05/31/20 01:05 94 H 94 05/31/20 01:01 111 H 95 05/31/20 00:59 106 H 93 05/31/20 00:57 100 H 133/76 05/31/20 00:56 99 H 94 05/31/20 00:54 100 H 150/78 H 05/31/20 00:53 97.9 F 18 05/31/20 00:51 89 96 05/31/20 00:46 83 96 05/31/20 00:41 95 H 95 05/31/20 00:38 83 94 05/31/20 00:36 84 93 05/31/20 00:31 80 93 05/31/20 00:26 82 93 05/31/20 00:21 82 93 05/31/20 00:16 93 H 94 05/31/20 00:15 86 94 05/31/20 00:14 76 118/59 L 05/31/20 00:11 82 93 05/31/20 00:06 82 93 05/31/20 00:04 86 94 05/31/20 00:01 81 92 05/30/20 23:58 93 H 127/60 05/30/20 23:56 77 94 05/30/20 23:51 85 92 05/30/20 23:46 85 92 05/30/20 23:43 84 118/67 Coding Level of Care Code None Diagnoses Encounter for induction of labor Z34.90 Insulin controlled gestational diabetes mellitus (GDM) during , antepartum O24.414
--- NOTE | 2020-05-31 14:14 | Labor Progress Brief Note ---
Date of Service May 31, 2020 Subjective Able to get some rest, has had mild range BPs even while resting Assessment & Plan (1) Encounter for induction of labor: 24 y/o G1 at 39 4/7 wga, IOL for A2GDM VSS Fetus cat 1 Labor - cervix thinner than prior exam, some progression noted. Has had pit halved x 1 and back to 30. Discussed trying pit off entirely for pit break x 30 min, then restart and pt amenable GBS +, PCN Epidural in place meets criteria for gHTN w/ multiple mild ranges, even at rest. Will continue to monitor (2) Insulin controlled gestational diabetes mellitus (GDM) during , antepartum: Will monitor BG every few hours as longer induction Admission and Anticipated Discharge Date Admission Date: May 30, 2020 Physical Exam Constitutional: WD/WN, vitals as above Respiratory: normal respiratory effort; no respiratory distress and no labored breathing Genitourinary: Manual OB Exam: + cervical dilation 5 cm, + cervical effacement 80% and + station 0 OB Exam Monitor Tracing: + external FHT monitor used, + intra-uterine pressure catheter used (MVUs intermittently adequate and inadequate, q3min) and + category I (140/mod/+accel/-decel) Results & Data ([facility]) Vital Signs (Past 12 Hours) Vital Signs Temp Pulse Resp BP Pulse Ox 05/31/20 14:10 88 127/69 05/31/20 14:06 84 96 05/31/20 14:01 93 H 97 05/31/20 13:56 85 95 05/31/20 13:51 100 H 96 05/31/20 13:46 92 H 97 05/31/20 13:41 90 96 05/31/20 13:39 92 H 150/78 H 05/31/20 13:36 84 95 05/31/20 13:31 86 95 05/31/20 13:26 83 94 05/31/20 13:21 89 94 05/31/20 13:16 87 93 05/31/20 13:11 78 93 05/31/20 13:09 83 136/74 05/31/20 13:06 86 94 05/31/20 13:01 87 94 05/31/20 12:56 82 94 05/31/20 12:51 79 95 05/31/20 12:46 81 96 05/31/20 12:41 80 95 05/31/20 12:40 86 138/77 05/31/20 12:36 102 H 97 05/31/20 12:31 78 95 05/31/20 12:26 86 95 05/31/20 12:21 80 95 05/31/20 12:16 82 96 05/31/20 12:11 88 97 05/31/20 12:10 95 H 142/87 H 05/31/20 12:06 83 97 05/31/20 12:01 85 96 05/31/20 11:56 100 H 98 05/31/20 11:51 85 95 05/31/20 11:46 84 95 05/31/20 11:41 90 95 05/31/20 11:40 85 144/71 H 05/31/20 11:36 87 97 05/31/20 11:34 97.7 F 20 05/31/20 11:31 94 H 97 05/31/20 11:26 100 H 98 05/31/20 11:21 74 95 05/31/20 11:16 70 95 05/31/20 11:11 104 H 95 05/31/20 11:10 90 138/75 05/31/20 11:06 79 96 05/31/20 11:01 88 96 05/31/20 10:56 95 H 95 05/31/20 10:51 89 95 05/31/20 10:46 87 95 05/31/20 10:41 92 H 94 05/31/20 10:40 82 142/72 H 05/31/20 10:36 88 94 05/31/20 10:31 86 94 05/31/20 10:26 91 H 94 05/31/20 10:21 92 H 93 05/31/20 10:16 93 H 93 05/31/20 10:11 96 H 94 05/31/20 10:06 87 94 05/31/20 10:01 90 94 05/31/20 09:57 83 132/63 05/31/20 09:56 86 93 05/31/20 09:51 85 94 05/31/20 09:46 97 H 94 05/31/20 09:41 73 94 05/31/20 09:40 89 125/67 05/31/20 09:36 96 H 92 05/31/20 09:31 94 H 93 05/31/20 09:27 97.9 F 82 18 123/64 05/31/20 09:26 84 93 05/31/20 09:21 86 93 05/31/20 09:16 88 94 05/31/20 09:14 88 94 05/31/20 09:11 81 132/77 96 05/31/20 09:06 94 H 96 05/31/20 09:01 105 H 97 05/31/20 08:56 73 133/87 97 05/31/20 08:54 74 94 05/31/20 08:51 76 96 05/31/20 08:46 81 94 05/31/20 08:42 65 93 05/31/20 08:41 104 H 138/64 96 05/31/20 08:36 86 94 05/31/20 08:33 71 94 05/31/20 08:31 98 H 97 05/31/20 08:26 78 94 05/31/20 08:25 83 130/67 05/31/20 08:22 100 H 94 05/31/20 08:21 78 94 05/31/20 08:16 75 94 05/31/20 08:15 98 H 94 05/31/20 08:12 88 136/67 05/31/20 08:11 78 94 05/31/20 08:09 74 94 05/31/20 08:06 80 94 05/31/20 08:04 81 94 05/31/20 08:01 98 H 95 05/31/20 07:58 76 94 05/31/20 07:56 94 H 127/72 95 05/31/20 07:53 82 94 05/31/20 07:51 105 H 95 05/31/20 07:47 69 93 05/31/20 07:46 78 96 05/31/20 07:42 70 125/66 05/31/20 07:41 81 96 05/31/20 07:36 81 96 05/31/20 07:31 87 97 05/31/20 07:26 97.7 F 88 20 131/61 97 05/31/20 07:21 86 95 05/31/20 07:17 85 94 05/31/20 07:16 84 95 05/31/20 07:11 89 129/67 95 05/31/20 07:06 90 97 05/31/20 07:01 87 97 03/16/21 06:56 97 H 136/80 94 05/31/20 06:51 97 H 96 05/31/20 06:46 92 H 97 05/31/20 06:42 106 H 144/81 H 05/31/20 06:41 99 H 94 05/31/20 06:36 97 H 94 05/31/20 06:35 98 H 94 05/31/20 06:31 92 H 94 05/31/20 06:29 94 H 94 05/31/20 06:26 96 H 95 05/31/20 06:25 106 H 154/89 H 05/31/20 06:22 105 H 94 05/31/20 06:21 98 H 94 05/31/20 06:16 99 H 94 05/31/20 06:15 98.1 F 18 05/31/20 06:11 92 H 144/87 H 94 05/31/20 06:06 101 H 94 05/31/20 06:05 96 H 94 05/31/20 06:01 100 H 93 05/31/20 05:57 97 H 18 143/83 H 05/31/20 05:56 96 H 93 05/31/20 05:51 100 H 93 05/31/20 05:46 100 H 92 05/31/20 05:41 93 H 93 05/31/20 05:40 99 H 141/69 H 05/31/20 05:36 98 H 92 05/31/20 05:31 105 H 93 05/31/20 05:30 96 H 144/74 H 05/31/20 05:26 93 H 93 05/31/20 05:21 101 H 92 05/31/20 05:16 99 H 93 05/31/20 05:11 96 H 92 05/31/20 05:06 102 H 92 05/31/20 05:01 101 H 93 05/31/20 04:56 104 H 94 05/31/20 04:51 91 H 93 05/31/20 04:48 87 94 05/31/20 04:46 93 H 96 05/31/20 04:41 91 H 96 05/31/20 04:38 91 H 138/70 05/31/20 04:36 99 H 150/74 H 96 05/31/20 04:34 98 H 149/77 H 05/31/20 04:33 98 H 94 05/31/20 04:32 91 H 149/78 H 05/31/20 04:31 98.8 F 92 H 18 95 05/31/20 04:30 99 H 147/73 H 05/31/20 04:28 96 H 155/75 H 05/31/20 04:27 93 H 152/74 H 94 05/31/20 04:26 93 H 94 05/31/20 04:21 94 H 95 05/31/20 04:20 95 H 94 05/31/20 04:16 89 95 05/31/20 04:14 108 H 148/92 H 93 05/31/20 04:11 95 H 95 05/31/20 04:08 106 H 94 05/31/20 04:06 94 H 93 05/31/20 04:01 97 H 93 05/31/20 03:57 93 H 150/82 H 05/31/20 03:56 90 93 05/31/20 03:54 86 94 05/31/20 03:51 85 93 05/31/20 03:48 89 94 05/31/20 03:46 91 H 93 05/31/20 03:44 97 H 150/72 H 05/31/20 03:42 88 94 05/31/20 03:41 93 H 95 05/31/20 03:36 97 H 95 05/31/20 03:35 90 94 05/31/20 03:31 87 93 05/31/20 03:29 89 94 05/31/20 03:27 95 H 142/72 H 05/31/20 03:26 100 H 95 05/31/20 03:23 92 H 94 05/31/20 03:21 88 93 05/31/20 03:16 92 H 92 05/31/20 03:12 98 H 128/74 05/31/20 03:11 102 H 93 05/31/20 03:09 86 94 05/31/20 03:06 90 92 05/31/20 03:04 95 H 94 05/31/20 03:01 94 H 94 05/31/20 02:58 97.7 F 94 H 18 131/78 93 05/31/20 02:56 95 H 94 05/31/20 02:52 97 H 94 05/31/20 02:51 108 H 93 05/31/20 02:46 99 H 93 05/31/20 02:43 98 H 140/74 05/31/20 02:41 100 H 92 05/31/20 02:40 89 93 05/31/20 02:36 94 H 94 05/31/20 02:35 85 94 05/31/20 02:31 101 H 93 05/31/20 02:28 93 H 146/72 H 05/31/20 02:26 95 H 92 05/31/20 02:24 113 H 94 05/31/20 02:21 97 H 93 05/31/20 02:19 99 H 93 05/31/20 02:16 113 H 96 05/31/20 02:13 96 H 149/77 H 05/31/20 02:11 97 H 93 Coding Level of Care Code None Diagnoses Encounter for induction of labor Z34.90 Insulin controlled gestational diabetes mellitus (GDM) during , antepartum O24.414
--- NOTE | 2020-05-31 17:48 | Labor Progress Brief Note ---
Date of Service May 31, 2020 Subjective Resting comfortably, intermittent ctx pain but tolerable Assessment & Plan (1) Encounter for induction of labor: 24 y/o G1 at 39 4/7 wga, IOL for A2GDM VSS Fetus cat 1 Labor - SVE unchanged, ctx not consistently adequate. Despite some thinning on prior exam, overall clinically significant change not noted and has been 5 since around 11pm last evening even after pit to 30 x 2 (second time after halving). Has restarted pit after full break however still not producing frequent or adequate ctx at all. No s/s chorio, fetus reassuring overall.Discussed that there may be component of CPD or asynclitic position preventing dilation however difficult to assess on cervical exam alone but would expect some sort of change even with prolonged latent labor course and amount of pitocin after 15 hours. Pt verbalized understanding. Will recheck in few hours, however discussed may recommend CS if still not in active labor at that point due to risk of infection, increased bleeding, and low likelihood of progression into active labor after this amount of time. pt amenable GBS +, PCN Epidural in place meets criteria for gHTN w/ multiple mild ranges, even at rest. Will continue to monitor (2) Insulin controlled gestational diabetes mellitus (GDM) during , antepartum: Will monitor BG every few hours as longer induction Admission and Anticipated Discharge Date Admission Date: May 30, 2020 Physical Exam Constitutional: WD/WN, vitals as above Respiratory: normal respiratory effort; no respiratory distress and no labored breathing Genitourinary: Manual OB Exam: + cervical dilation 5 cm, + cervical effacement 80% and + station 0 OB Exam Monitor Tracing: + external FHT monitor used, + intra-uterine pressure catheter used (MVUs inadequate, q3-6min, pit at 13) and + category I (145/mod/+accel/-decel) Results & Data ([facility]) Vital Signs (Past 12 Hours) Vital Signs Temp Pulse Resp BP Pulse Ox 05/31/20 17:42 86 138/75 05/31/20 17:41 97 H 97 05/31/20 17:36 97 H 98 05/31/20 17:31 93 H 97 05/31/20 17:26 91 H 98 05/31/20 17:21 90 98 05/31/20 17:16 83 97 05/31/20 17:11 78 95 05/31/20 17:09 88 141/72 H 05/31/20 17:06 83 96 05/31/20 17:01 95 H 97 05/31/20 16:56 84 98 05/31/20 16:51 92 H 95 05/31/20 16:46 84 95 05/31/20 16:41 74 94 05/31/20 16:40 80 140/67 05/31/20 16:36 79 95 05/31/20 16:31 79 94 05/31/20 16:26 83 94 05/31/20 16:21 80 95 05/31/20 16:16 102 H 97 05/31/20 16:11 104 H 97 05/31/20 16:09 105 H 143/85 H 05/31/20 16:06 97 H 95 05/31/20 16:01 101 H 98 05/31/20 15:56 101 H 96 05/31/20 15:51 96 H 96 05/31/20 15:46 111 H 95 05/31/20 15:41 109 H 95 05/31/20 15:40 107 H 125/85 05/31/20 15:36 101 H 95 05/31/20 15:31 94 H 96 05/31/20 15:26 92 H 96 05/31/20 15:21 88 94 05/31/20 15:16 86 95 05/31/20 15:11 84 95 05/31/20 15:10 78 138/70 05/31/20 15:06 87 94 05/31/20 15:01 84 95 05/31/20 14:56 88 95 05/31/20 14:51 89 95 05/31/20 14:46 83 95 05/31/20 14:41 77 127/64 95 05/31/20 14:36 80 95 05/31/20 14:31 77 94 05/31/20 14:26 97 H 98 05/31/20 14:21 86 97 05/31/20 14:16 94 H 97 05/31/20 14:11 84 96 05/31/20 14:10 88 127/69 05/31/20 14:06 84 96 05/31/20 14:01 93 H 97 05/31/20 13:56 85 95 05/31/20 13:51 100 H 96 05/31/20 13:46 92 H 97 05/31/20 13:41 90 96 05/31/20 13:39 92 H 150/78 H 05/31/20 13:36 84 95 05/31/20 13:31 98.1 F 86 18 95 05/31/20 13:26 83 94 05/31/20 13:21 89 94 05/31/20 13:16 87 93 05/31/20 13:11 78 93 05/31/20 13:09 83 136/74 05/31/20 13:06 86 94 05/31/20 13:01 87 94 05/31/20 12:56 82 94 05/31/20 12:51 79 95 05/31/20 12:46 81 96 05/31/20 12:41 80 95 05/31/20 12:40 86 138/77 05/31/20 12:36 102 H 97 05/31/20 12:31 78 95 05/31/20 12:26 86 95 05/31/20 12:21 80 95 05/31/20 12:16 82 96 05/31/20 12:11 88 97 05/31/20 12:10 95 H 142/87 H 05/31/20 12:06 83 97 05/31/20 12:01 85 96 05/31/20 11:56 100 H 98 05/31/20 11:51 85 95 05/31/20 11:46 84 95 05/31/20 11:41 90 95 05/31/20 11:40 85 144/71 H 05/31/20 11:36 87 97 05/31/20 11:34 97.7 F 20 05/31/20 11:31 94 H 97 05/31/20 11:26 100 H 98 05/31/20 11:21 74 95 05/31/20 11:16 70 95 05/31/20 11:11 104 H 95 05/31/20 11:10 90 138/75 05/31/20 11:06 79 96 05/31/20 11:01 88 96 05/31/20 10:56 95 H 95 05/31/20 10:51 89 95 05/31/20 10:46 87 95 05/31/20 10:41 92 H 94 05/31/20 10:40 82 142/72 H 05/31/20 10:36 88 94 03/16/21 10:31 86 94 05/31/20 10:26 91 H 94 05/31/20 10:21 92 H 93 05/31/20 10:16 93 H 93 05/31/20 10:11 96 H 94 05/31/20 10:06 87 94 05/31/20 10:01 90 94 05/31/20 09:57 83 132/63 05/31/20 09:56 86 93 05/31/20 09:51 85 94 05/31/20 09:46 97 H 94 05/31/20 09:41 73 94 05/31/20 09:40 89 125/67 05/31/20 09:36 96 H 92 05/31/20 09:31 94 H 93 05/31/20 09:27 97.9 F 82 18 123/64 05/31/20 09:26 84 93 05/31/20 09:21 86 93 05/31/20 09:16 88 94 05/31/20 09:14 88 94 05/31/20 09:11 81 132/77 96 05/31/20 09:06 94 H 96 05/31/20 09:01 105 H 97 05/31/20 08:56 73 133/87 97 05/31/20 08:54 74 94 05/31/20 08:51 76 96 05/31/20 08:46 81 94 05/31/20 08:42 65 93 05/31/20 08:41 104 H 138/64 96 05/31/20 08:36 86 94 05/31/20 08:33 71 94 05/31/20 08:31 98 H 97 05/31/20 08:26 78 94 05/31/20 08:25 83 130/67 05/31/20 08:22 100 H 94 05/31/20 08:21 78 94 05/31/20 08:16 75 94 05/31/20 08:15 98 H 94 05/31/20 08:12 88 136/67 05/31/20 08:11 78 94 05/31/20 08:09 74 94 05/31/20 08:06 80 94 05/31/20 08:04 81 94 05/31/20 08:01 98 H 95 05/31/20 07:58 76 94 05/31/20 07:56 94 H 127/72 95 05/31/20 07:53 82 94 05/31/20 07:51 105 H 95 05/31/20 07:47 69 93 05/31/20 07:46 78 96 05/31/20 07:42 70 125/66 05/31/20 07:41 81 96 05/31/20 07:36 81 96 05/31/20 07:31 87 97 05/31/20 07:26 97.7 F 88 20 131/61 97 05/31/20 07:21 86 95 05/31/20 07:17 85 94 05/31/20 07:16 84 95 05/31/20 07:11 89 129/67 95 05/31/20 07:06 90 97 05/31/20 07:01 87 97 05/31/20 06:56 97 H 136/80 94 05/31/20 06:51 97 H 96 05/31/20 06:46 92 H 97 05/31/20 06:42 106 H 144/81 H 05/31/20 06:41 99 H 94 05/31/20 06:36 97 H 94 05/31/20 06:35 98 H 94 05/31/20 06:31 92 H 94 05/31/20 06:29 94 H 94 05/31/20 06:26 96 H 95 05/31/20 06:25 106 H 154/89 H 05/31/20 06:22 105 H 94 05/31/20 06:21 98 H 94 05/31/20 06:16 99 H 94 05/31/20 06:15 98.1 F 18 05/31/20 06:11 92 H 144/87 H 94 05/31/20 06:06 101 H 94 05/31/20 06:05 96 H 94 05/31/20 06:01 100 H 93 05/31/20 05:57 97 H 18 143/83 H 05/31/20 05:56 96 H 93 05/31/20 05:51 100 H 93 05/31/20 05:46 100 H 92 Coding Level of Care Code None Diagnoses Encounter for induction of labor Z34.90 Insulin controlled gestational diabetes mellitus (GDM) during , antepartum O24.414
[2020-05-31] MEDS ORDERED: fentaNYL 2MCG/ML ROPIVACAINE 1.25MG/ML 100 ML BAG EPI ONE (19:30)
[2020-05-31] MEDS ORDERED: LIDOCAINE/EPINEPHRINE 2% 1:200,000 20 ML SDV ONE (20:20)
[2020-05-31] MEDS ORDERED: OXYTOCIN 10 UNITS/ML VIAL ONE (20:20)
--- NOTE | 2020-05-31 20:29 | Labor Progress Brief Note ---
Date of Service May 31, 2020 Subjective Feeling some pressure Assessment & Plan (1) Encounter for induction of labor: 24 y/o G1 at 39 4/7 wga, IOL for A2GDM VSS Fetus cat 2, now more recently having intermittent late decels Labor - SVE unchanged. Discussed w/ unchanged cervix with multiple attempts with pit maxed out, there may be evidence of CPD and do not think significant chance of after this time. Additionally intermittent late decels noted with position changes which did not occur before, so concern that fetus is becoming intolerant of labor and would recommend CS. Discussed indications, risks, benefits, alternatives with risks including infection, bleeding, injury to adjacent structures (bowel, bladder, ureters, blood vessels, nerves, baby), possible need for blood transfusion and/or life saving hysterectomy, VTE. Consent reviewed in detail w/ pt and signed after all questions answered to her satisfaction. Anesthesia and peds made aware (2) Insulin controlled gestational diabetes mellitus (GDM) during , antepartum: Will monitor BG every few hours as longer induction Admission and Anticipated Discharge Date Admission Date: May 30, 2020 Physical Exam Constitutional: WD/WN, vitals as above Respiratory: normal respiratory effort; no respiratory distress and no labored breathing Genitourinary: Manual OB Exam: + cervical dilation 5 cm, + cervical effacement 80% and + station 0 OB Exam Monitor Tracing: + external FHT monitor used, + intra-uterine pressure catheter used (MVUs inadequate, q3-5min, pit at 19) and + category I (145/mod/+accel/intermittent late decels) Results & Data ([facility]) Vital Signs (Past 12 Hours) Vital Signs Temp Pulse Resp BP Pulse Ox 05/31/20 20:21 96 H 95 05/31/20 20:16 98 H 99 05/31/20 20:11 105 H 95 05/31/20 20:10 96 H 136/72 05/31/20 20:06 92 H 93 05/31/20 20:01 98 H 94 05/31/20 19:56 93 H 95 05/31/20 19:51 106 H 96 05/31/20 19:46 93 H 94 05/31/20 19:41 98 H 94 05/31/20 19:39 97 H 135/85 05/31/20 19:36 96 H 95 05/31/20 19:31 100 H 96 05/31/20 19:26 87 95 05/31/20 19:21 90 96 05/31/20 19:16 106 H 95 05/31/20 19:11 88 95 05/31/20 19:10 86 125/60 05/31/20 19:06 80 97 05/31/20 19:05 99.1 F 20 05/31/20 19:01 99 H 96 05/31/20 18:56 90 97 05/31/20 18:51 94 H 98 05/31/20 18:46 89 98 05/31/20 18:41 90 98 05/31/20 18:40 91 H 151/70 H 05/31/20 18:36 88 96 05/31/20 18:31 83 97 05/31/20 18:26 91 H 98 05/31/20 18:21 90 96 05/31/20 18:16 82 96 05/31/20 18:11 98.6 F 83 18 137/68 96 05/31/20 18:06 85 95 05/31/20 18:01 88 97 05/31/20 17:56 93 H 96 05/31/20 17:51 94 H 96 05/31/20 17:46 93 H 96 05/31/20 17:42 86 138/75 05/31/20 17:41 97 H 97 05/31/20 17:36 97 H 98 05/31/20 17:31 93 H 97 05/31/20 17:26 98.1 F 91 H 20 98 05/31/20 17:21 90 98 05/31/20 17:16 83 97 05/31/20 17:11 78 95 05/31/20 17:09 88 141/72 H 05/31/20 17:06 83 96 05/31/20 17:01 95 H 97 05/31/20 16:56 84 98 05/31/20 16:51 92 H 95 05/31/20 16:46 84 95 05/31/20 16:41 74 94 05/31/20 16:40 80 140/67 05/31/20 16:36 79 95 05/31/20 16:31 79 94 05/31/20 16:26 83 94 05/31/20 16:21 80 95 05/31/20 16:16 102 H 97 05/31/20 16:11 104 H 97 05/31/20 16:09 105 H 143/85 H 05/31/20 16:06 97 H 95 05/31/20 16:01 101 H 98 05/31/20 15:56 101 H 96 05/31/20 15:51 96 H 96 05/31/20 15:46 111 H 95 05/31/20 15:41 109 H 95 05/31/20 15:40 107 H 125/85 05/31/20 15:36 101 H 95 05/31/20 15:31 94 H 96 05/31/20 15:30 98.2 F 18 05/31/20 15:26 92 H 96 05/31/20 15:21 88 94 05/31/20 15:16 86 95 05/31/20 15:11 84 95 05/31/20 15:10 78 138/70 05/31/20 15:06 87 94 05/31/20 15:01 84 95 05/31/20 14:56 88 95 05/31/20 14:51 89 95 05/31/20 14:46 83 95 05/31/20 14:41 77 127/64 95 05/31/20 14:36 80 95 05/31/20 14:31 77 94 05/31/20 14:26 97 H 98 05/31/20 14:21 86 97 05/31/20 14:16 94 H 97 05/31/20 14:11 84 96 05/31/20 14:10 88 127/69 05/31/20 14:06 84 96 05/31/20 14:01 93 H 97 05/31/20 13:56 85 95 05/31/20 13:51 100 H 96 05/31/20 13:46 92 H 97 05/31/20 13:41 90 96 05/31/20 13:39 92 H 150/78 H 05/31/20 13:36 84 95 05/31/20 13:31 98.1 F 86 18 95 05/31/20 13:26 83 94 05/31/20 13:21 89 94 05/31/20 13:16 87 93 05/31/20 13:11 78 93 05/31/20 13:09 83 136/74 05/31/20 13:06 86 94 05/31/20 13:01 87 94 05/31/20 12:56 82 94 05/31/20 12:51 79 95 05/31/20 12:46 81 96 05/31/20 12:41 80 95 05/31/20 12:40 86 138/77 05/31/20 12:36 102 H 97 05/31/20 12:31 78 95 05/31/20 12:26 86 95 05/31/20 12:21 80 95 05/31/20 12:16 82 96 05/31/20 12:11 88 97 05/31/20 12:10 95 H 142/87 H 05/31/20 12:06 83 97 05/31/20 12:01 85 96 05/31/20 11:56 100 H 98 05/31/20 11:51 85 95 05/31/20 11:46 84 95 05/31/20 11:41 90 95 05/31/20 11:40 85 144/71 H 05/31/20 11:36 87 97 05/31/20 11:34 97.7 F 20 05/31/20 11:31 94 H 97 05/31/20 11:26 100 H 98 05/31/20 11:21 74 95 05/31/20 11:16 70 95 05/31/20 11:11 104 H 95 05/31/20 11:10 90 138/75 05/31/20 11:06 79 96 05/31/20 11:01 88 96 05/31/20 10:56 95 H 95 05/31/20 10:51 89 95 05/31/20 10:46 87 95 05/31/20 10:41 92 H 94 05/31/20 10:40 82 142/72 H 05/31/20 10:36 88 94 05/31/20 10:31 86 94 05/31/20 10:26 91 H 94 05/31/20 10:21 92 H 93 05/31/20 10:16 93 H 93 05/31/20 10:11 96 H 94 05/31/20 10:06 87 94 05/31/20 10:01 90 94 05/31/20 09:57 83 132/63 05/31/20 09:56 86 93 05/31/20 09:51 85 94 05/31/20 09:46 97 H 94 05/31/20 09:41 73 94 05/31/20 09:40 89 125/67 05/31/20 09:36 96 H 92 05/31/20 09:31 94 H 93 05/31/20 09:27 97.9 F 82 18 123/64 05/31/20 09:26 84 93 05/31/20 09:21 86 93 05/31/20 09:16 88 94 05/31/20 09:14 88 94 05/31/20 09:11 81 132/77 96 05/31/20 09:06 94 H 96 05/31/20 09:01 105 H 97 05/31/20 08:56 73 133/87 97 05/31/20 08:54 74 94 05/31/20 08:51 76 96 05/31/20 08:46 81 94 05/31/20 08:42 65 93 05/31/20 08:41 104 H 138/64 96 05/31/20 08:36 86 94 05/31/20 08:33 71 94 05/31/20 08:31 98 H 97 Coding Level of Care Code None Diagnoses Encounter for induction of labor Z34.90 Insulin controlled gestational diabetes mellitus (GDM) during , antepartum O24.414
[2020-05-31] MEDS ORDERED: LACTATED RINGER'S 1,000 ML IV SCH ×2 (20:30→22:22)
[2020-05-31] MEDS ORDERED: CITRIC ACID/SODIUM CITRATE 15 ML UDC PO SCH (20:45)
[2020-05-31] MEDS ORDERED: AZITHROMYCIN 500 MG in DEXTROSE 5% 250 ML IV SCH (20:45)
[2020-05-31] MEDS ORDERED: ONDANSETRON INJ 2 MG/ML 2 ML VIAL ONE (21:04)
[2020-05-31] MEDS ORDERED: MoRPHine SULFATE PF 1 MG/ML 10 ML AMP/VIAL ONE (21:24)
[2020-05-31] MEDS ORDERED: NALOXONE HCL 0.4 MG/1 ML VIAL/CARP IV PRN (21:27)
[2020-05-31] MEDS ORDERED: LACTATED RINGER'S 500 ML IV PRN (21:27)
[2020-05-31] MEDS ORDERED: MEPERIDINE HCL 25 MG/ML CARP/VIAL IV PRN (21:27)
[2020-05-31] MEDS ORDERED: ePHEDrine sulfate 50 MG/ML AMP IV PRN (21:27)
[2020-05-31] MEDS ORDERED: NALOXONE HCL 1 MG in SODIUM CHLORIDE 0.9% 1000ML 1,000 ML IV PRN (21:27)
[2020-05-31] MEDS ORDERED: ONDANSETRON INJ 2 MG/ML 2 ML VIAL IV PRN ×2 (21:27→22:22)
[2020-05-31] MEDS ORDERED: diphenhydrAMINE 50 MG/ML VIAL IV PRN (21:27)
[2020-05-31] MEDS ORDERED: MoRPHine SULFATE PF 1 MG/ML 10 ML AMP/VIAL INT SPINAL ONE (21:27)
[2020-05-31] MEDS ORDERED: NALOXONE HCL 0.08 MG in SYRINGE 1.8 ML IV PRN (21:27)
[2020-05-31] MEDS ORDERED: NO NARCOTICS OR SEDATIVES SCH (21:30)
[2020-05-31] MEDS ORDERED: DC INTRASPINAL MORPHINE SCH (21:30)
[2020-05-31] MEDS ORDERED: SODIUM CHLORIDE 0.9% 1000ML 1,000 ML IV SCH (21:30)
[2020-05-31 21:45] LABS: Base Excess Cord Arterial Bld -5.4 mEq/L (-9-1.8); CO2 Cord Arterial Blood 60 mmHg (39.1-73.5); HCO3 Cord Arterial Blood 24 mmol/L (19.7-28.5); PO2 Cord Arterial Blood 13 mmHg (4.1-31.7); pH Cord Arterial Blood 7.21 (7.1-7.38)
[2020-05-31 21:54] LABS: Cord Venous Blood HCO3 23 mmol/L (18.4-26.8); Cord Venous Blood PCO2 52 mmHg (30.4-57.2); Cord Venous Blood PO2 15 mmHg (14.1-43.3); Cord Venous Blood pH 7.26 (7.20-7.44); Oxygen Sat Cord Arterial Blood < 60.0 % (<60)
[2020-05-31 21:55] LABS: O2 Saturation Cord Venous Bld < 60.0 % (<68)
--- NOTE | 2020-05-31 22:21 | Post Operative Brief Note ---
PG Immediate Post Op with CF Date of Surgery May 31, 2020 Pre & Post Diagnosis Operation Date: 05/31/20 20:20 Pre-Op Diagnosis: 1. Single intrauterine at 39 4/7 2. A2GDM 3. Gestational hypertension 4. Failed Induction of Labor Post-Op Diagnosis: Same as Pre op 5. Delivered I identified the patient and participated in the time-out.: Yes Procedure Operation Date: 05/31/20 20:20 Actual Procedures p Primary Low Transverse Section for the of a live female child at 2121. - Kendal Garcia MD Surgeon Kendal Garcia MD Warper Tender Doris Estimated Blood Loss 700 Findings Consistent with Post-Op Diagnosis Normal appearing uterus, bilateral fallopian tubes and ovaries. Viable female infant weighing 8lb 3oz with APGARS 8 and 9 at 1 and 5 minutes, respectively Fluids 900cc crystalloid, 150cc clear urine by rios Specimens Specimen Description: 1.) Placenta - Hold 2.) Cord Blood 3.) Cord Gases Drains Rios Catheter (draining clear urine) Anesthesia Type L&D Only Epidural Exists Complications none Disposition Accompanied Patient To Recovery: Yes Disposition: L&D
[2020-05-31] MEDS ORDERED: DIPHTHERIA/TETANUS/PERTUSSIS 0.5 ML SYR/VIAL IM ONE (22:22)
[2020-05-31] MEDS ORDERED: BENZOCAINE 20% AER SPR 82.5 GM CAN EXT PRN (22:22)
[2020-05-31] MEDS ORDERED: PROMETHAZINE HCL 25 MG in SODIUM CHLORIDE 0.9% 50 ML IV PRN (22:22)
[2020-05-31] MEDS ORDERED: MAGNESIUM HYDROXIDE SUSP 30 ML UDC PO PRN (22:22)
[2020-05-31] MEDS ORDERED: HYDROCORTISONE ACETATE 25 MG SUPP PR PRN (22:22)
[2020-05-31] MEDS ORDERED: SENNA 8.6 MG TAB PO PRN (22:22)
[2020-05-31] MEDS ORDERED: SUPERCREAM 0.870% 15 GM JAR EXT PRN (22:22)
--- NOTE | 2020-05-31 22:24 | Anesthesiology Progress Note ---
Date of Service May 31, 2020 Anesthesia Post Procedure Vital Signs Vital Signs: Temp Pulse Resp BP Pulse Ox 05/31/20 22:19 111 H 125/65 97 05/31/20 22:16 103 H 89 L 05/31/20 22:14 109 H 97 05/31/20 22:09 116 H 129/72 97 05/31/20 20:46 103 H 96 05/31/20 20:41 101 H 97 05/31/20 20:36 106 H 96 05/31/20 20:31 104 H 97 05/31/20 20:26 102 H 98 05/31/20 20:21 96 H 95 05/31/20 20:16 98 H 99 05/31/20 20:11 105 H 95 05/31/20 20:10 96 H 136/72 05/31/20 20:06 92 H 93 05/31/20 20:01 98 H 94 05/31/20 19:56 93 H 95 05/31/20 19:51 106 H 96 05/31/20 19:46 93 H 94 05/31/20 19:41 98 H 94 05/31/20 19:39 97 H 135/85 05/31/20 19:36 96 H 95 05/31/20 19:31 100 H 96 05/31/20 19:26 87 95 05/31/20 19:21 90 96 05/31/20 19:16 106 H 95 05/31/20 19:11 88 95 05/31/20 19:10 86 125/60 05/31/20 19:06 80 97 05/31/20 19:05 99.1 F 20 05/31/20 19:01 99 H 96 05/31/20 18:56 90 97 05/31/20 18:51 94 H 98 05/31/20 18:46 89 98 05/31/20 18:41 90 98 05/31/20 18:40 91 H 151/70 H 05/31/20 18:36 88 96 05/31/20 18:31 83 97 05/31/20 18:26 91 H 98 05/31/20 18:21 90 96 05/31/20 18:16 82 96 05/31/20 18:11 98.6 F 83 18 137/68 96 05/31/20 18:06 85 95 05/31/20 18:01 88 97 05/31/20 17:56 93 H 96 05/31/20 17:51 94 H 96 05/31/20 17:46 93 H 96 05/31/20 17:42 86 138/75 05/31/20 17:41 97 H 97 05/31/20 17:36 97 H 98 05/31/20 17:31 93 H 97 05/31/20 17:26 98.1 F 91 H 20 98 05/31/20 17:21 90 98 05/31/20 17:16 83 97 05/31/20 17:11 78 95 05/31/20 17:09 88 141/72 H 05/31/20 17:06 83 96 05/31/20 17:01 95 H 97 05/31/20 16:56 84 98 05/31/20 16:51 92 H 95 05/31/20 16:46 84 95 05/31/20 16:41 74 94 05/31/20 16:40 80 140/67 05/31/20 16:36 79 95 05/31/20 16:31 79 94 05/31/20 16:26 83 94 05/31/20 16:21 80 95 05/31/20 16:16 102 H 97 05/31/20 16:11 104 H 97 05/31/20 16:09 105 H 143/85 H 05/31/20 16:06 97 H 95 05/31/20 16:01 101 H 98 05/31/20 15:56 101 H 96 05/31/20 15:51 96 H 96 05/31/20 15:46 111 H 95 05/31/20 15:41 109 H 95 05/31/20 15:40 107 H 125/85 05/31/20 15:36 101 H 95 05/31/20 15:31 94 H 96 05/31/20 15:30 98.2 F 18 05/31/20 15:26 92 H 96 05/31/20 15:21 88 94 05/31/20 15:16 86 95 16 15:11 84 95 16 15:10 78 138/70 05/31/20 15:06 87 94 16 15:01 84 95 16 14:56 88 95 05/31/20 14:51 89 95 05/31/20 14:46 83 95 05/31/20 14:41 77 127/64 95 05/31/20 14:36 80 95 05/31/20 14:31 77 94 05/31/20 14:26 97 H 98 05/31/20 14:21 86 97 05/31/20 14:16 94 H 97 05/31/20 14:11 84 96 05/31/20 14:10 88 127/69 05/31/20 14:06 84 96 05/31/20 14:01 93 H 97 05/31/20 13:56 85 95 05/31/20 13:51 100 H 96 05/31/20 13:46 92 H 97 05/31/20 13:41 90 96 05/31/20 13:39 92 H 150/78 H 05/31/20 13:36 84 95 05/31/20 13:31 98.1 F 86 18 95 05/31/20 13:26 83 94 05/31/20 13:21 89 94 05/31/20 13:16 87 93 05/31/20 13:11 78 93 05/31/20 13:09 83 136/74 05/31/20 13:06 86 94 05/31/20 13:01 87 94 05/31/20 12:56 82 94 05/31/20 12:51 79 95 05/31/20 12:46 81 96 05/31/20 12:41 80 95 05/31/20 12:40 86 138/77 05/31/20 12:36 102 H 97 05/31/20 12:31 78 95 05/31/20 12:26 86 95 05/31/20 12:21 80 95 05/31/20 12:16 82 96 05/31/20 12:11 88 97 05/31/20 12:10 95 H 142/87 H 05/31/20 12:06 83 97 05/31/20 12:01 85 96 05/31/20 11:56 100 H 98 05/31/20 11:51 85 95 05/31/20 11:46 84 95 05/31/20 11:41 90 95 05/31/20 11:40 85 144/71 H 05/31/20 11:36 87 97 05/31/20 11:34 97.7 F 20 05/31/20 11:31 94 H 97 05/31/20 11:26 100 H 98 05/31/20 11:21 74 95 05/31/20 11:16 70 95 05/31/20 11:11 104 H 95 05/31/20 11:10 90 138/75 05/31/20 11:06 79 96 05/31/20 11:01 88 96 05/31/20 10:56 95 H 95 05/31/20 10:51 89 95 05/31/20 10:46 87 95 05/31/20 10:41 92 H 94 05/31/20 10:40 82 142/72 H 05/31/20 10:36 88 94 05/31/20 10:31 86 94 05/31/20 10:26 91 H 94 05/31/20 10:21 92 H 93 05/31/20 10:16 93 H 93 05/31/20 10:11 96 H 94 05/31/20 10:06 87 94 05/31/20 10:01 90 94 05/31/20 09:57 83 132/63 05/31/20 09:56 86 93 05/31/20 09:51 85 94 05/31/20 09:46 97 H 94 05/31/20 09:41 73 94 05/31/20 09:40 89 125/67 05/31/20 09:36 96 H 92 05/31/20 09:31 94 H 93 05/31/20 09:27 97.9 F 82 18 123/64 05/31/20 09:26 84 93 05/31/20 09:21 86 93 05/31/20 09:16 88 94 05/31/20 09:14 88 94 05/31/20 09:11 81 132/77 96 05/31/20 09:06 94 H 96 05/31/20 09:01 105 H 97 05/31/20 08:56 73 133/87 97 05/31/20 08:54 74 94 05/31/20 08:51 76 96 05/31/20 08:46 81 94 05/31/20 08:42 65 93 05/31/20 08:41 104 H 138/64 96 05/31/20 08:36 86 94 05/31/20 08:33 71 94 05/31/20 08:31 98 H 97 05/31/20 08:26 78 94 05/31/20 08:25 83 130/67 05/31/20 08:22 100 H 94 05/31/20 08:21 78 94 05/31/20 08:16 75 94 05/31/20 08:15 98 H 94 05/31/20 08:12 88 136/67 05/31/20 08:11 78 94 05/31/20 08:09 74 94 05/31/20 08:06 80 94 05/31/20 08:04 81 94 05/31/20 08:01 98 H 95 05/31/20 07:58 76 94 05/31/20 07:56 94 H 127/72 95 05/31/20 07:53 82 94 05/31/20 07:51 105 H 95 05/31/20 07:47 69 93 05/31/20 07:46 78 96 05/31/20 07:42 70 125/66 05/31/20 07:41 81 96 05/31/20 07:36 81 96 05/31/20 07:31 87 97 05/31/20 07:26 97.7 F 88 20 131/61 97 05/31/20 07:21 86 95 05/31/20 07:17 85 94 05/31/20 07:16 84 95 05/31/20 07:11 89 129/67 95 05/31/20 07:06 90 97 05/31/20 07:01 87 97 05/31/20 06:56 97 H 136/80 94 05/31/20 06:51 97 H 96 05/31/20 06:46 92 H 97 05/31/20 06:42 106 H 144/81 H 05/31/20 06:41 99 H 94 05/31/20 06:36 97 H 94 05/31/20 06:35 98 H 94 05/31/20 06:31 92 H 94 05/31/20 06:29 94 H 94 05/31/20 06:26 96 H 95 05/31/20 06:25 106 H 154/89 H 05/31/20 06:22 105 H 94 05/31/20 06:21 98 H 94 05/31/20 06:16 99 H 94 05/31/20 06:15 98.1 F 18 05/31/20 06:11 92 H 144/87 H 94 05/31/20 06:06 101 H 94 05/31/20 06:05 96 H 94 05/31/20 06:01 100 H 93 05/31/20 05:57 97 H 18 143/83 H 05/31/20 05:56 96 H 93 05/31/20 05:51 100 H 93 05/31/20 05:46 100 H 92 05/31/20 05:41 93 H 93 05/31/20 05:40 99 H 141/69 H 05/31/20 05:36 98 H 92 05/31/20 05:31 105 H 93 05/31/20 05:30 96 H 144/74 H 05/31/20 05:26 93 H 93 05/31/20 05:21 101 H 92 05/31/20 05:16 99 H 93 05/31/20 05:11 96 H 92 05/31/20 05:06 102 H 92 05/31/20 05:01 101 H 93 05/31/20 04:56 104 H 94 05/31/20 04:51 91 H 93 05/31/20 04:48 87 94 05/31/20 04:46 93 H 96 05/31/20 04:41 91 H 96 05/31/20 04:38 91 H 138/70 05/31/20 04:36 99 H 150/74 H 96 05/31/20 04:34 98 H 149/77 H 05/31/20 04:33 98 H 94 05/31/20 04:32 91 H 149/78 H 05/31/20 04:31 98.8 F 92 H 18 95 05/31/20 04:30 99 H 147/73 H 05/31/20 04:28 96 H 155/75 H 05/31/20 04:27 93 H 152/74 H 94 05/31/20 04:26 93 H 94 05/31/20 04:21 94 H 95 05/31/20 04:20 95 H 94 05/31/20 04:16 89 95 05/31/20 04:14 108 H 148/92 H 93 05/31/20 04:11 95 H 95 05/31/20 04:08 106 H 94 05/31/20 04:06 94 H 93 05/31/20 04:01 97 H 93 05/31/20 03:57 93 H 150/82 H 05/31/20 03:56 90 93 05/31/20 03:54 86 94 05/31/20 03:51 85 93 05/31/20 03:48 89 94 05/31/20 03:46 91 H 93 05/31/20 03:44 97 H 150/72 H 05/31/20 03:42 88 94 05/31/20 03:41 93 H 95 05/31/20 03:36 97 H 95 05/31/20 03:35 90 94 05/31/20 03:31 87 93 05/31/20 03:29 89 94 05/31/20 03:27 95 H 142/72 H 05/31/20 03:26 100 H 95 05/31/20 03:23 92 H 94 05/31/20 03:21 88 93 05/31/20 03:16 92 H 92 05/31/20 03:12 98 H 128/74 05/31/20 03:11 102 H 93 05/31/20 03:09 86 94 05/31/20 03:06 90 92 05/31/20 03:04 95 H 94 05/31/20 03:01 94 H 94 05/31/20 02:58 97.7 F 94 H 18 131/78 93 05/31/20 02:56 95 H 94 05/31/20 02:52 97 H 94 05/31/20 02:51 108 H 93 05/31/20 02:46 99 H 93 05/31/20 02:43 98 H 140/74 05/31/20 02:41 100 H 92 05/31/20 02:40 89 93 05/31/20 02:36 94 H 94 05/31/20 02:35 85 94 05/31/20 02:31 101 H 93 05/31/20 02:28 93 H 146/72 H 05/31/20 02:26 95 H 92 05/31/20 02:24 113 H 94 05/31/20 02:21 97 H 93 05/31/20 02:19 99 H 93 05/31/20 02:16 113 H 96 05/31/20 02:13 96 H 149/77 H 05/31/20 02:11 97 H 93 05/31/20 02:06 91 H 91 05/31/20 02:01 111 H 94 05/31/20 01:57 100 H 140/82 05/31/20 01:56 105 H 94 05/31/20 01:55 94 H 94 05/31/20 01:51 96 H 94 05/31/20 01:46 100 H 95 05/31/20 01:44 96 H 94 05/31/20 01:42 103 H 131/76 05/31/20 01:41 97 H 95 05/31/20 01:36 117 H 96 05/31/20 01:33 94 H 94 05/31/20 01:31 92 H 95 05/31/20 01:28 100 H 125/69 05/31/20 01:27 90 93 05/31/20 01:26 111 H 95 05/31/20 01:22 103 H 94 05/31/20 01:21 101 H 95 05/31/20 01:18 18 05/31/20 01:16 98 H 93 05/31/20 01:12 98 H 137/79 05/31/20 01:11 103 H 92 05/31/20 01:10 99 H 94 05/31/20 01:06 102 H 93 05/31/20 01:05 94 H 94 05/31/20 01:01 111 H 95 05/31/20 00:59 106 H 93 05/31/20 00:57 100 H 133/76 05/31/20 00:56 99 H 94 05/31/20 00:54 100 H 150/78 H 05/31/20 00:53 97.9 F 18 05/31/20 00:51 89 96 05/31/20 00:46 83 96 05/31/20 00:41 95 H 95 05/31/20 00:38 83 94 05/31/20 00:36 84 93 05/31/20 00:31 80 93 05/31/20 00:26 82 93 05/31/20 00:21 82 93 05/31/20 00:16 93 H 94 05/31/20 00:15 86 94 05/31/20 00:14 76 118/59 L 05/31/20 00:11 82 93 05/31/20 00:06 82 93 05/31/20 00:04 86 94 05/31/20 00:01 81 92 05/30/20 23:58 93 H 127/60 05/30/20 23:56 77 94 05/30/20 23:51 85 92 05/30/20 23:46 85 92 05/30/20 23:43 84 118/67 05/30/20 23:41 84 92 05/30/20 23:36 78 93 05/30/20 23:31 75 93 05/30/20 23:28 79 92 05/30/20 23:27 91 H 113/57 L 05/30/20 23:26 83 93 05/30/20 23:21 81 93 05/30/20 23:16 78 93 05/30/20 23:12 81 94 05/30/20 23:11 94 H 96 05/30/20 23:06 77 94 05/30/20 23:02 80 94 05/30/20 23:01 98.8 F 87 18 94 05/30/20 22:58 90 138/78 05/30/20 22:57 90 94 05/30/20 22:56 99 H 95 05/30/20 22:51 80 98 05/30/20 22:46 77 94 05/30/20 22:41 81 118/57 L 94 05/30/20 22:36 85 94 05/30/20 22:31 82 95 05/30/20 22:26 81 119/59 L 96 Pain Intensity Medial Abdomen: Pain Intensity: 0 Transfer of Care Handoff Completed per policy Notes Mental Status: alert / awake / arousable and participated in evaluation Nausea / Vomiting: adequately controlled Pain: adequately controlled Airway Patency, RR, SpO2: stable & adequate BP & HR: stable & adequate Hydration State: stable & adequate Neuraxial Anesthesia: was administered and sensory block is resolving Anesthetic Complications: no major complications apparent and Pt Satisfied with anesthetic care
[2020-05-31] MEDS: KETOROLAC 30 MG/ML VIAL IV PRN (22:25)
--- NOTE | 2020-05-31 22:58 | Operative Report ---
PG Post Operative Report Pre & Post Diagnosis Operation Date: 05/31/20 20:20 Pre-Op Diagnosis: 1. Single intrauterine at 39 4/7 2. A2GDM 3. Gestational hypertension 4. GBS+ 5. Failed Induction of Labor Post-Op Diagnosis: Same as Pre op Delivered I identified the patient and participated in the time-out.: Yes Procedure Operation Date: 05/31/20 20:20 Actual Procedures p Primary Low Transverse Section for the of a live female child at 2121. - Kendal Garcia MD Surgeon Kendal Garcia MD [employer] Doris Estimated Blood Loss 700 Findings Consistent with Post-Op Diagnosis Normal appearing uterus, bilateral fallopian tubes and ovaries. Viable female weighing 8lb 3oz with APGARS 8 and 9 at 1 and 5 minutes, respectively Fluids 900cc crystalloid, 150cc clear urine by rios Specimens 1.) Placenta - Hold 2.) Cord Blood 3.) Cord Gases Drains Rios draining clear urine Anesthesia Type L&D Only Epidural Exists Complications none Disposition Accompanied Patient To Recovery: Yes Disposition: L&D Indications 24 y/o G1 at 39 4/7 wga presented 1 day ago for planned IOL for A2GDM. Induction was begun with rios bulb. PCN was initiated for GBS+ status. Oxytocin was initiated once balloon was found to be in the vagina on admission. Oxytocin was titrated up and she underwent AROM. She made slow progress and was found to be 5cm around 11pm last evening. IUPC had been placed for more accurate titration. She was titrated up to 30 milliunits/min w/o change and so pit was halved and titrated back up this morning. Cervix thinned out however no further cervical change was made after pit was titrated back to 30. She was counseled that given no further change after adequate titration, recommendation was for . Informed consent was reviewed in detail and signed after all questions were answered. During her labor course, pt was noted to have mildly elevated BPs even at rest and eventually met criteria for gHTN. Description of Procedure The patient was taken to the operating room after consents were ensured. The patient was properly identified. Spinal anesthesia was obtained without difficulty. The patient was placed in a dorsal supine position with left lateral tilt, then prepped and draped in normal sterile fashion. Surgical time out was performed. Antibiotics were given for prophylaxis. Anesthesia was tested to ensure adequate surgical levels. Pfannenstiel skin incision was performed and carried down to the underlying fascia with a knife. The fascia was then nicked in the midline and extended laterally with picklogan and Baker scissors. Superior portion of the fascia was grasped with Kochers x2 and elevated off the underlying rectus muscles using blunt dissection. Inferior portion of the fascia was then grasped with Jarek clamps x2 and also elevated off the underlying muscles with blunt dissection. Midline was identified. The peritoneum was then entered sharply and extended to provide adequate room for delivery of baby. The hand was inserted into the abdomen, uterus was noted to be clear of adhesions. Bladder blade was inserted, bladder flap was created in the usual fashion. A low transverse uterine incision was made in the uterus and extended bluntly in a superior to inferior fashion. Amniotomy was made with clear fluid at the time of rupture. head was grasped and elevated through the hysterotomy in an atraumatic fashion. The baby delivered in ROSEY position, no nuchal cord. Remainder of the body delivered without incident. Nose and mouth were bulb suctioned on the surgical field. The cord was double clamped and cut after 30 seconds of delayed cord clamping, baby was handed off to awaiting pediatrics staff. Cord segment and blood were obtained. Placenta was then expressed from the uterus. The uterus was exteriorized. Several passes were made inside the uterus to remove the remaining membranes. Attention was then turned to the hysterotomy, which was then closed with a running locked suture of 0 Vicryl on a CTX needle. An imbricating layer was then performed using 0-Monocryl. There was noted to be good hemostasis. The posterior cul-de-sac was then inspected and cleaned of clot and debris. The hysterotomy was again inspected and noted to be hemostatic. The uterus was returned to the abdomen. The right and left pericolic gutters were cleaned of all clot and debris. The hysterotomy was again noted to be hemostatic. Space of Retzius was noted to be hemostatic. The fascia was then closed with a running suture of 0 Vicryl on a CT1 needle. Subcutaneous tissue was copiously irrigated and noted to be hemostatic. Subcutaneous tissue was re-approximated using 2-0 plain gut. The skin was then closed with a running suture of 3-0 Monocryl in a subcuticular fashion. At termination of the procedure, the fundal pressure was applied and a moderate amount of lochia was expressed. Pressure dressing was applied to the patient. She tolerated the procedure well. All sponge, needle, instrument counts were correct x 2. I attest to the content of the Intraoperative Record and any orders documented therein. Any exceptions are noted below. OB Procedure charges OB Charges 57259 C/S
[2020-05-31] MEDS ORDERED: OXYTOCIN 20 UNITS in LACTATED RINGER'S 1,000 ML IV SCH (23:00)
[2020-06-01] MEDS: KETOROLAC 30 MG/ML VIAL IV PRN ×2 (05:34→11:26)
--- NOTE | 2020-06-01 05:49 | Obstetrical Progress Note ---
Date of Service <Edmar Charles MD - Last Filed: 06/01/20 06:15> June 01, 2020 Assessment & Plan <Edmar Charles MD - Last Filed: 06/01/20 06:15> (1) Encounter for induction of labor: - PNL: Rh neg, RI, GBS pos, COVID neg - Feels well today. Eating well, voiding well, ambulating well - Pain well controlled with ibuprofen 600mg Q4H PRN - Routine postoperative care -- OOB, ambulation, diet progression as tolerated - After discharge will have 6 week follow-up with Dr. Garcia (2) Group beta Strep positive: (3) Insulin controlled gestational diabetes mellitus (GDM) during , antepartum: Subjective <Edmar Charles MD - Last Filed: 06/01/20 06:15> Nellie is a 24 y/o female who is POD #1 following delivery after failed IOL at 39+ weeks. She reports feeling well overall this morning. Moderate abdominal cramping and 6/10 pain well managed on analgesics. Voiding well. Tolerating meals overnight without difficulty. Patient has not yet been able to ambulate. Has been passing gas, no bowel movement as of yet. Has persistent lochia with some improvement this morning. Currently well. Review of Systems Denies fever or chills. Denies shortness of breath or cough. Denies chest pain. Denies breast pain. Denies dysuria. Denies leg pain or leg swelling. Denies headache or changes in vision. Physical Exam <Edmar Charles MD - Last Filed: 06/01/20 06:15> General: Alert, oriented. No acute distress. Cardiac: Regular rate and rhythm. No murmurs. Respiratory: Clear to auscultation bilaterally a/p, no wheezes/rales/rhonchi. No increased work of breathing. Symmetrical chest rise. No respiratory distress. Abdomen: Soft, nontender, nondistended. Bowel sounds present. Uterus: Uterine fundus firm, palpable 1 cm below umbilicus. Surgical scar clean and healing well. Lower Extremities: No lower extremity edema or swelling. No deep calf pain. Yana's negative bilaterally. Results & Data ([facility]) <Edmar Charles MD - Last Filed: 06/01/20 06:15> Vital Signs (Past 12 Hours) Vital Signs Temp Pulse Pulse Resp BP BP Pulse Ox 06/01/20 04:30 18 92 06/01/20 03:30 18 90 06/01/20 02:30 18 94 06/01/20 01:40 36.6 C 96 H 18 121/77 95 06/01/20 01:30 18 94 06/01/20 00:40 36.5 C 93 H 18 135/82 95 06/01/20 00:14 106 H 90 06/01/20 00:10 100 H 94 06/01/20 00:09 96 H 18 124/67 93 06/01/20 00:04 110 H 92 06/01/20 00:02 100 H 93 05/31/20 23:59 96 H 117/63 93 05/31/20 23:55 106 H 91 05/31/20 23:54 91 H 94 05/31/20 23:49 85 114/72 94 05/31/20 23:44 89 93 05/31/20 23:42 90 94 05/31/20 23:39 91 H 18 110/70 95 05/31/20 23:34 91 H 94 05/31/20 23:29 92 H 103/57 L 94 05/31/20 23:27 84 115/61 05/31/20 23:26 82 94 05/31/20 23:24 115 H 94 05/31/20 23:21 101 H 94 05/31/20 23:19 102 H 94 05/31/20 23:16 102 H 93 05/31/20 23:14 105 H 93 05/31/20 23:11 104 H 94 05/31/20 23:09 36.8 C 88 16 142/65 H 92 05/31/20 23:04 118 H 93 05/31/20 23:00 124 H 94 05/31/20 22:59 115 H 16 140/63 94 05/31/20 22:54 127 H 95 05/31/20 22:49 120 H 20 137/66 94 05/31/20 22:44 126 H 94 05/31/20 22:39 109 H 141/81 H 96 05/31/20 22:37 106 H 94 05/31/20 22:34 103 H 97 05/31/20 22:32 101 H 18 135/80 05/31/20 22:29 107 H 97 05/31/20 22:24 112 H 97 05/31/20 22:19 111 H 18 125/65 97 05/31/20 22:16 103 H 89 L 05/31/20 22:14 109 H 97 05/31/20 22:09 36.8 C 116 H 18 129/72 97 05/31/20 20:46 103 H 96 05/31/20 20:41 101 H 97 05/31/20 20:36 106 H 96 05/31/20 20:31 104 H 97 05/31/20 20:26 102 H 98 05/31/20 20:21 96 H 95 05/31/20 20:16 98 H 99 05/31/20 20:11 105 H 95 05/31/20 20:10 96 H 136/72 05/31/20 20:06 92 H 93 05/31/20 20:01 98 H 94 05/31/20 19:56 93 H 95 05/31/20 19:51 106 H 96 05/31/20 19:46 93 H 94 05/31/20 19:41 98 H 94 05/31/20 19:39 97 H 135/85 05/31/20 19:36 96 H 95 05/31/20 19:31 100 H 96 05/31/20 19:26 87 95 05/31/20 19:21 90 96 05/31/20 19:16 106 H 95 05/31/20 19:11 88 95 05/31/20 19:10 86 125/60 05/31/20 19:06 80 97 05/31/20 19:05 37.3 C 20 05/31/20 19:01 99 H 96 05/31/20 18:56 90 97 05/31/20 18:51 94 H 98 05/31/20 18:46 89 98 05/31/20 18:41 90 98 05/31/20 18:40 91 H 151/70 H 05/31/20 18:36 88 96 05/31/20 18:31 83 97 05/31/20 18:26 91 H 98 05/31/20 18:21 90 96 05/31/20 18:16 82 96 05/31/20 18:11 37.0 C 83 18 137/68 96 05/31/20 18:06 85 95 05/31/20 18:01 88 97 05/31/20 17:56 93 H 96 05/31/20 17:51 94 H 96 <Kendal Garcia MD - Last Filed: 06/01/20 06:53> Co-Signing Physician Notes Resident Physician Supervision Note: I interviewed and examined the patient. Discussed with Dr. Carpenter and agree with findings and plan as documented in the note. Any exceptions or clarifications are listed here: POD1 s/p pLTCS for failed IOL for A2GDM, dx w/ gHTN here w/ persistent mild range BPs. Doing well this AM, will continue routine postop care. Can remove dressing in shower today. Will need 1wk bp check Documented By: Kendal Garcia MD Resident Activity Tracking <Edmar Charles MD - Last Filed: 06/01/20 06:15> Resident Involvement: Resident Care Provided Care Provided: OB Delivery
[2020-06-01 06:18] LABS: Basophils % (auto) 0.1 %; Eosinophils % (auto) 0.2 %; Hemoglobin 11.6 g/dL (12.0-16.0); Immature Granulocytes % (auto) 0.2 %; Lymphocytes % (auto) 11.4 %; Mean Corpuscular Hemoglobin 26.6 pg (25-34); Mean Corpuscular Hgb Conc 33.1 g/dL (32-36); Mean Corpuscular Volume 80.3 fL (80-100); Mean Platelet Volume 12.4 fL (7.4-10.4); Monocytes % (auto) 6.4 %; Neutrophils # (auto) 10.64 K/uL (1.4-6.5); Neutrophils % (auto) 81.7 %; Platelet Count 148 K/uL (130-400); RDW Coefficient of Variation 14.7 % (11.5-14.5); RDW Standard Deviation 42.7 fL (36.4-46.3); Red Blood Count 4.36 M/uL (4.2-5.4); White Blood Count 13.03 K/uL (4.8-10.8)
[2020-06-01 06:19] LABS: Basophils # (auto) 0.01 K/uL (0-0.2); Eosinophils # (auto) 0.03 K/uL (0-0.5); Immature Granulocytes # (auto) 0.03 K/uL (0.00-0.02); Lymphocytes # (auto) 1.48 K/uL (1.2-3.4); Monocytes # (auto) 0.84 K/uL (0.11-0.59)
[2020-06-01] MEDS: FERROUS SULFATE 325 MG TAB PO SCH (09:29)
[2020-06-01] MEDS: PRENATAL VITAMIN 1 TAB PO SCH (09:30)
[2020-06-01] MEDS: DOCUSATE SODIUM 100 MG CAP PO SCH ×2 (09:30→20:34)
[2020-06-01] MEDS: SIMETHICONE 80 MG CHEW PO SCH ×4 (09:30→20:34)
[2020-06-01] MEDS ORDERED: diphenhydrAMINE 50 MG/ML VIAL IV PRN (15:27)
[2020-06-01] MEDS ORDERED: KETOROLAC 30 MG/ML VIAL IV PRN (15:27)
[2020-06-01] MEDS ORDERED: diphenhydrAMINE Capsule 25 MG CAP PO PRN (15:27)
[2020-06-01] MEDS: IBUPROFEN 600 MG TAB PO PRN ×2 (15:53→20:34)
[2020-06-01] MEDS: oxyCODONE/ACETAMINOPHEN 5mg/325mg TAB PO PRN ×2 (15:53→20:35)
[2020-06-01] MEDS ORDERED: bisacodyL 5 MG TABEC PO SCH (20:00)
[2020-06-02] MEDS: IBUPROFEN 600 MG TAB PO PRN ×6 (00:39→23:30)
[2020-06-02] MEDS: oxyCODONE/ACETAMINOPHEN 5mg/325mg TAB PO PRN ×6 (00:39→23:29)
--- NOTE | 2020-06-02 05:59 | Obstetrical Progress Note ---
Date of Service <Edmar Charles MD - Last Filed: 06/02/20 06:57> June 02, 2020 Assessment & Plan <Edmar Charles MD - Last Filed: 06/02/20 06:57> (1) Encounter for induction of labor: - PNL: Rh neg, RI, GBS pos, COVID neg - Feels well today. Eating well, voiding well, ambulating well - Pain well controlled with ibuprofen 600mg Q4H PRN - Routine postoperative care -- OOB, ambulation, diet progression as tolerated - After discharge will have 6 week follow-up with Dr. Garcia (2) Group beta Strep positive: (3) Need for rhogam due to Rh negative mother: (4) Insulin controlled gestational diabetes mellitus (GDM) during , antepartum: Subjective <Edmar Charles MD - Last Filed: 06/02/20 06:57> Nellie is a 24 y/o female who is POD #2 following delivery after failed IOL at 39+ weeks. She reports feeling well overall this morning. Light abdominal cramping and 4/10 pain well managed on analgesics. Voiding well. Tolerating meals overnight without difficulty. Patient has been able to ambulate some. Is passing gas and had a bowel movement. Has persistent lochia with some improvement this morning. Currently . Review of Systems Denies fever or chills. Denies shortness of breath or cough. Denies chest pain. Denies breast pain. Denies dysuria. Denies leg pain or leg swelling. Denies headache or changes in vision. Physical Exam <Edmar Charles MD - Last Filed: 06/02/20 06:57> General: Alert, oriented. No acute distress. Cardiac: Regular rate and rhythm. No murmurs. Respiratory: Clear to auscultation bilaterally a/p, no wheezes/rales/rhonchi. No increased work of breathing. Symmetrical chest rise. No respiratory distress. Abdomen: Soft, nontender, nondistended. Bowel sounds present. Uterus: Uterine fundus firm, palpable 2 cm below umbilicus. Surgical scar clean and healing well. Lower Extremities: No lower extremity edema or swelling. No deep calf pain. Yana's negative bilaterally. Results & Data ([facility]) <Edmar Charles MD - Last Filed: 06/02/20 06:57> Vital Signs (Past 12 Hours) Vital Signs Temp Pulse Resp BP Pulse Ox 06/01/20 23:20 36.5 C 81 16 127/85 95 06/01/20 19:05 36.5 C 85 20 109/72 95 <Denver George MD - Last Filed: 06/02/20 08:48> Co-Signing Physician Notes Patient seen and evaluated and agree with the above findings and plan. Doing well. Routine care Resident Activity Tracking <Edmar Charles MD - Last Filed: 06/02/20 06:57> Resident Involvement: Resident Care Provided Care Provided: OB Delivery
[2020-06-02] MEDS: DOCUSATE SODIUM 100 MG CAP PO SCH ×2 (08:45→20:56)
[2020-06-02] MEDS: FERROUS SULFATE 325 MG TAB PO SCH (08:45)
[2020-06-02] MEDS: PRENATAL VITAMIN 1 TAB PO SCH (08:45)
[2020-06-02] MEDS: SIMETHICONE 80 MG CHEW PO SCH ×4 (08:45→20:56)
[2020-06-02] MEDS ORDERED: bisacodyL 10 MG SUPP PR PRN (22:13)
--- NOTE | 2020-06-03 05:16 | Obstetrical Progress Note ---
Date of Service <Edmar Charles MD - Last Filed: 06/03/20 07:31> June 03, 2020 Assessment & Plan <Edmar Charles MD - Last Filed: 06/03/20 07:31> (1) Encounter for induction of labor: - PNL: Rh neg, RI, GBS pos, COVID neg - Feels well today. Eating well, voiding well, ambulating well - Pain well controlled with Percocet prn - Routine postoperative care -- OOB, ambulation, diet progression as tolerated - After discharge will have 6 week follow-up with Dr. Garcia (2) Group beta Strep positive: (3) Need for rhogam due to Rh negative mother: (4) Insulin controlled gestational diabetes mellitus (GDM) during , antepartum: Subjective <Edmar Charles MD - Last Filed: 06/03/20 07:31> Nellie is a 24 y/o female who is POD #3 following delivery after failed IOL at 39+ weeks. She reports feeling well overall this morning. Light abdominal cramping and 3/10 pain well managed on analgesics. Voiding well. Tolerating meals overnight without difficulty. Patient has been able to ambulate some. Is passing gas and has had a bowel movement. Has persistent lochia with some improvement this morning. Currently and supplementing with bottle. Review of Systems Denies fever or chills. Denies shortness of breath or cough. Denies chest pain. Denies breast pain. Denies dysuria. Denies leg pain or leg swelling. Denies headache or changes in vision. Physical Exam <Edmar Charles MD - Last Filed: 06/03/20 07:31> General: Alert, oriented. No acute distress. Cardiac: Regular rate and rhythm. No murmurs. Respiratory: Clear to auscultation bilaterally a/p, no wheezes/rales/rhonchi. No increased work of breathing. Symmetrical chest rise. No respiratory distress. Abdomen: Soft, nontender, nondistended. Bowel sounds present. Uterus: Uterine fundus firm, palpable ~3 cm below umbilicus. Surgical scar clean and healing well. Lower Extremities: No lower extremity edema or swelling. No deep calf pain. Yana's negative bilaterally. Results & Data ([facility]) <Edmar Charles MD - Last Filed: 06/03/20 07:31> Vital Signs (Past 12 Hours) Vital Signs Temp Pulse Resp BP Pulse Ox 06/02/20 23:30 36.6 C 82 18 134/87 06/02/20 19:35 36.5 C 87 18 136/88 95 <Elly Chu MD, FACOG - Last Filed: 06/03/20 07:33> Co-Signing Physician Notes Resident Physician Supervision Note: I interviewed and examined the patient. Discussed with Dr. Carpenter and agree with findings and plan as documented in the note. Any exceptions or clarifications are listed here: Patient doing well. Plan d/c home. f/u in office in 6 weeks. INsturctions given. Documented By: Elly Chu MD, FACOG Resident Activity Tracking <Edmar Charles MD - Last Filed: 06/03/20 07:31> Resident Involvement: Resident Care Provided Care Provided: OB Delivery
[2020-06-03] MEDS: IBUPROFEN 600 MG TAB PO PRN ×2 (06:24→10:52)
[2020-06-03] MEDS: oxyCODONE/ACETAMINOPHEN 5mg/325mg TAB PO PRN ×2 (06:25→10:53)
[2020-06-03] MEDS: PRENATAL VITAMIN 1 TAB PO SCH (07:59)
[2020-06-03] MEDS: FERROUS SULFATE 325 MG TAB PO SCH (07:59)
[2020-06-03] MEDS: SIMETHICONE 80 MG CHEW PO SCH (07:59)
[2020-06-03] MEDS: DOCUSATE SODIUM 100 MG CAP PO SCH (07:59)
--- NOTE | 2020-06-05 10:12 | Discharge Summary ---
Date of Service June 05, 2020 Admission HPI Per Admitting Provider 24yo at 39+wks letty with edc 06/03/20 presents to L&D with above cc. She denies rom, vb. +FM. no regular ctx Had balloon placed last evening for unfavorable cervix. She felt a lot of cramping about 3am and then that got better. Has not fallen out. Took 1/2 her insulin this am with her light breakfast. Fasting glucose today was 90. PNC c/b 1. rh neg, had rhogam, eval pp 2. gdm on insulin 3. oligo in early , resolved at 28wks 4. obesity 5. unable to view heart on routine anatomy, echo wnl 6. GBS positive. PNL rh neg, ri, gbs positive OBH: g1 GYNH: nl paps, no stds Admission Exam (Per Admitting) Constitutional Constitutional: WD/WN, vitals as above Respiratory: normal respiratory effort, lungs clear to auscultation Cardiovascular: Rate/Rhythm: regular rate and regular rhythm Gastrointestinal (Abdomen): soft gravid nt, efw 7-8# Musculoskeletal: no edema nontender calves Neurologic: grossly normal Psychiatric: A+Ox3, euthymic affect Genitourinary: Manual OB Exam: + cervical dilation 3 cm, + cervical effacement 50% and + station (posterior) -2 OB Exam Monitor Tracing: + external FHT monitor used (155 mod variability), + external uterine monitor used (irreg), + category I and + normal FHT variability balloon was in vagina and deflated and removed from vagina. Discharge Data Consultations 05/30/20 08:12 Consult Anesthesiology Stat Procedures Performed Operation Date: 05/31/20 20:20 Actual Procedures p Primary Section for the of a live female child at 2121. - Kendal Garcia MD Hospital Course (1) Encounter for induction of labor: Induction was begun with rios bulb. PCN was initiated for GBS+ status. Oxytocin was initiated once balloon was found to be in the vagina on admission. Oxytocin was titrated up and she underwent AROM. She made slow progress and was found to be 5cm around 11pm last evening. IUPC had been placed for more accurate titration. She was titrated up to 30 milliunits/min w/o change and so pit was halved and titrated back up this morning. Cervix thinned out however no further cervical change was made after pit was titrated back to 30. She was counseled that given no further change after adequate titration, recommendation was for . Informed consent was reviewed in detail and signed after all questions were answered. During her labor course, pt was noted to have mildly elevated BPs even at rest and eventually met criteria for gHTN. See operative report for details. Postop, the pt did well and was discharged home on POD3 Coding Level of Care Code None Diagnoses Encounter for induction of labor Z34.90
== END 2020-06-03 11:15 | disposition home or self-care (01) | DRG 788 ==
LOC: 4S1 08:05 → 4S2 06-01 00:20

== ENCOUNTER 2023-01-21 07:08 | Inpatient (IN) ==
--- NOTE | 2023-01-10 09:41 | Anesthesiology Consultation ---
Date of Service January 10, 2023 Assessment & Plan (1) Encounter for pre-operative examination: - 05/30/20 epidural L3-L4 1 attempt. 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 Chart Review Chart Review: charge entry initiated History Surgery Operation Date: 01/21/23 07:30 Proposed Procedures p Section (Delivery of Baby Through Abdominal Incision) - Elly Chu MD, FACOG s With Bilateral Tubal Ligation - Elly Chu MD, FACOG Height/Weight Height: 5 ft 6 in Weight: 104.326 kg Allergies Allergy/AdvReac Type Severity Reaction Status Date / Time No Known Allergies Allergy Verified 01/10/23 07:30 Medications Home Medications Medication Instructions Recorded Confirmed Last Taken prenat.vits,dallin,opj-bide-puqbv 1 tab PO DAILY 12/14/19 01/10/23 05/30/20 07:00 acetone (urine) test (Ketone Urine #50 ea 08/03/22 01/04/23 Unknown Test strips) blood sugar diagnostic (OneTouch #150 ea 08/03/22 01/04/23 Unknown Verio test strips) blood-glucose meter (OneTouch #1 ea 08/03/22 01/04/23 Unknown Verio Reflect Meter) lancets 33 gauge (OneTouch Delica #150 ea 08/03/22 01/04/23 Unknown Lancets) pen needle, diabetic 32 gauge x #50 ea 09/21/22 01/04/23 Unknown 5/32" (BD Ultra-Fine Mendy Pen Needle) insulin NPH isoph U-100 human 100 See Rx Instructions subcut QAM #15 10/05/22 01/10/23 Unknown unit/mL (3 mL) subcutaneous pen mL (Novolin N FlexPen) ferrous sulfate 325 mg (65 mg 325 mg PO Q2D 01/10/23 01/10/23 Unknown iron) tablet (iron) Past Medical History Medical History GDM (gestational diabetes mellitus) Insulin controlled gestational diabetes mellitus (GDM) during , antepartum Need for rhogam due to Rh negative mother Oligohydramnios antepartum Varicella vaccine Past Family History Family History Denies family history of Ovarian cancer Breast cancer Colorectal cancer Past Surgical History Surgical History Hx of section S/P wisdom tooth extraction Social History Smoking Status: Former smoker Do You Dip or Chew Tobacco: No Smoking End Date: years ago Hx Alcohol Use: Yes alcohol intake frequency: other Alcohol Intake Frequency Comment: not during -when not only a couple times per month Hx Substance Use: No substance use type: does not use
--- NOTE | 2023-01-18 13:49 | History & Physical Report ---
Date of Service January 18, 2023 Assessment & Plan (1) Previous delivery affecting : (2) Insulin controlled gestational diabetes mellitus (GDM) during : (3) with 39 completed weeks gestation: Plan Patient declines JERO and desires repeat c/s and tubal ligation. Discussed bilateral salpingectomy and see agrees. Understands permanence and regret. Discussed other options including ltrc and vasectomy. The risks of surgery were discussed with the patient including the risks of anesthesia, bleeding requiring transfusion, infection, poor wound healing, urinary retention, damage to surrounding structures including bowels, bladder, vessels, nerves and ureters that may require further surgery, hospitalization or intervention, injury to the baby. The other risks of any surgery were discussed including heart attack, blood clots, stroke or . Consent reviewed and signed and surgery planned for 01/21. History of Present Illness Chief Complaint: presents for repeat c/s. Primary Care Provider: Beryl Albarran MD Patient is a 27yowf with iup at 39 3/7 weeks who presents for repeat c/s and sterilization. Had her first c/s after a failed induction of labor in her last GDM on insulin, last us 12/28--efw 75%, AC 91%. Notes her sugars have been fairly well controlled. Desires permanent sterilization. and Delivery Plans GDM with previous growth ultrasounds at 24 weeks. HTN issues PP--meds for a few weeks but none now. Obesity (BMI between 35-39 @ beginning of ) *Growth US @ 32 wks *Weekly NSTs @ 36wks Previous for failure to induce. Patient plans repeat c/s.--desires TL C/S WITH TUBAL SCHEDULED FOR 01/21/[address] RENETTA gaston unvaccinated--recommend Need for rhogam due to RH negative mother -Rhogam given 11/08/22- MK GDM on insulin *Wkly NSTs @32wks and Twice wkly @36wks *Serial growth US @28wks *Deliver by EDC GBS positive in Urine *Treat in labor OB Labs: Blood Type B Negative 06/25/22 Antibody Screen NEGATIVE 11/08/22 Hemoglobin 10.7 g/dl (12.0-16.0) L 11/08/22 Hematocrit 31.1 % (37.0-47.0) L 11/08/22 Mean Corpuscular Volume 78.4 fL (80.0-100.0) L 06/25/22 Platelet Count 206 K/uL (130-400) 06/25/22 Rubella IgG Antibody Immune (Immune) 06/25/22 Rapid Plasma Reagin Nonreactive (Nonreactive) 06/25/22 Hepatitis B Surface Antigen. NON-REACTIVE (NON-REACTIVE) 06/25/22 Hepatitis C Antibody (EIA) NON-REACTIVE (NON-REACTIVE) 06/25/22 HIV (1&2) Ag and Ab Confirmation NON-REACTIVE (NON-REACTIVE) 06/25/22 Maternal Serum Alpha Fetoprotein 38.2 ng/mL 08/14/22 OB Optional Labs: Chlamydia trachomatis RNA Not Detected (NotDetected) 06/25/22 Neisseria gonorrhoeae RNA Not Detected (NotDetected) 06/25/22 Alpha Fetoprotein Triple Screen SEE NOTE 08/14/22 Labs Reviewed: Horizon 14-negative--mln cfdna-low risk--mln gbs positive in urine--akh Allergies Allergy/AdvReac Type Severity Reaction Status Date / Time No Known Allergies Allergy Verified 01/18/23 15:38 Home Medications Medication Instructions Recorded Confirmed Type prenat.vits,dallin,bwm-wgbd-jqklv 1 tab PO DAILY 12/14/19 01/18/23 History acetone (urine) test (Ketone Urine #50 ea 08/03/22 01/18/23 Rx Test strips) blood sugar diagnostic (OneTouch #150 ea 08/03/22 01/18/23 Rx Verio test strips) blood-glucose meter (OneTouch #1 ea 08/03/22 01/18/23 Rx Verio Reflect Meter) lancets 33 gauge (OneTouch Delica #150 ea 08/03/22 01/18/23 Rx Lancets) pen needle, diabetic 32 gauge x #50 ea 09/21/22 01/18/23 Rx 5/32" (BD Ultra-Fine Mendy Pen Needle) insulin NPH isoph U-100 human 100 See Rx Instructions subcut QAM #15 10/05/22 01/18/23 Rx unit/mL (3 mL) subcutaneous pen mL (Novolin N FlexPen) ferrous sulfate 325 mg (65 mg 325 mg PO Q2D 01/10/23 01/18/23 History iron) tablet (iron) Patient History Medical History Varicella vaccine GDM (gestational diabetes mellitus) Insulin controlled gestational diabetes mellitus (GDM) during , antepartum Oligohydramnios antepartum Need for rhogam due to Rh negative mother Surgical History Hx of section S/P wisdom tooth extraction Family History Denies family history of Ovarian cancer Breast cancer Colorectal cancer Social History Smoking Status: Former smoker Tobacco Type: Cigarettes Second Hand Exposure: No; Do You Dip or Chew Tobacco: No; Hx Alcohol Use: Yes Hx Substance Use: No Preferred Language: Norwegian Communication Ability: Effective Field Reviewer Required: No Beliefs That Will Affect Care: None marital status: Single marital status details: contact pts mom Kayleen Ragsdale [phone] Current Living Situation: Family and Significant Other Current Living Situation Comment: lives with FOB, daughter no pets. current occupational status: employed current occupation: [employer] Feels Safe at Home: Yes Assistive Devices: None OB History Past Pregnancies Del. Date GA wks Lbr Lgth wt Sex Type del Anes Place Del Prov ? Comment 05/31/20 39 8lb 3.2oz F C-Sectio n Epidural [facility] Dr. 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
[2023-01-21] MEDS ORDERED: LACTATED RINGER'S 1,000 ML IV SCH ×2 (07:30→14:45)
[2023-01-21] MEDS ORDERED: ONDANSETRON INJ 2 MG/ML 2 ML VIAL ONE (08:25)
[2023-01-21] MEDS ORDERED: ePHEDrine sulfate 50 MG/5 ML SYR ONE (08:25)
[2023-01-21] MEDS ORDERED: OXYTOCIN 10 UNITS/ML VIAL ONE (08:25)
[2023-01-21] MEDS ORDERED: PHENYLEPHRINE 100MCG/ML 5ML SYR ONE (08:25)
[2023-01-21] MEDS ORDERED: MoRPHine SULFATE PF 1 MG/ML 10 ML AMP/VIAL ONE (08:26)
[2023-01-21] MEDS ORDERED: fentaNYL citrate PF 100 MCG/2 ML VIAL ONE (08:26)
--- NOTE | 2023-01-21 09:00 | History & Physical Bridge Note ---
Date of Service January 21, 2023 History & Physical Bridge Note I have examined the patient, reviewed the History & Physical and in the interval since the performance of the History & Physical I have noted the following changes of clinical significance: no changes noted
[2023-01-21 09:13] LABS: Hematocrit (blood only) 36.6 % (37.0-47.0); Hemoglobin 11.9 g/dl (12.0-16.0); Mean Corpuscular Hemoglobin 25.6 pg (25.0-34.0); Mean Corpuscular Hgb Conc 32.5 g/dL (32.0-36.0); Mean Corpuscular Volume 78.7 fL (80.0-100.0); Mean Platelet Volume 12.9 fL (9.4-12.4); Platelet Count 158 K/uL (130-400); RDW Coefficient of Variation 16.2 % (11.5-14.5); RDW Standard Deviation 45.8 fL (36.4-46.3); Red Blood Count 4.65 M/uL (4.20-5.40); White Blood Count 7.65 K/ul (4.8-10.8)
[2023-01-21] MEDS ORDERED: ONDANSETRON INJ 2 MG/ML 2 ML VIAL IV PRN (10:39)
[2023-01-21] MEDS ORDERED: NALBUPHINE HCL INJ 10 MG/ML AMP IV PRN (10:39)
[2023-01-21] MEDS ORDERED: NALOXONE HCL 1 MG in SODIUM CHLORIDE 0.9% 1,000 ML IV PRN (10:39)
[2023-01-21] MEDS ORDERED: HYDROmorphone INJ 0.5 MG/0.5 ML SYR IV PRN (10:39)
[2023-01-21] MEDS ORDERED: LACTATED RINGER'S 500 ML IV PRN (10:39)
[2023-01-21] MEDS ORDERED: diphenhydrAMINE 50 MG/ML VIAL IV PRN (10:39)
[2023-01-21] MEDS ORDERED: NALOXONE HCL 0.08 MG in SYRINGE 1.8 ML IV PRN (10:39)
[2023-01-21] MEDS ORDERED: PROMETHAZINE HCL 6.25 MG in SODIUM CHLORIDE 0.9% 50 ML IV PRN (10:39)
[2023-01-21] MEDS ORDERED: NALOXONE HCL 0.4 MG/1 ML VIAL/CARP IV PRN (10:39)
[2023-01-21] MEDS ORDERED: MoRPHine SULFATE PF 1 MG/ML 10 ML AMP/VIAL INT SPINAL ONE (10:39)
[2023-01-21] MEDS ORDERED: ePHEDrine sulfate 50 MG/ML AMP IV PRN (10:39)
[2023-01-21] MEDS ORDERED: NO NARCOTICS OR SEDATIVES SCH (10:45)
[2023-01-21] MEDS ORDERED: SODIUM CHLORIDE 0.9% 1,000 ML IV SCH (10:45)
[2023-01-21] MEDS ORDERED: DC INTRASPINAL MORPHINE SCH (10:45)
[2023-01-21] MEDS ORDERED: SODIUM CHLORIDE 0.9% 250 ML IV PRN (10:47)
[2023-01-21] MEDS ORDERED: diphenhydrAMINE 50 MG/ML VIAL ONE (11:00)
--- NOTE | 2023-01-21 11:33 | Anesthesiology Progress Note ---
Date of Service January 21, 2023 Anesthesia Post Procedure Vital Signs Vital Signs: Temp Pulse Resp BP Pulse Ox 01/21/23 11:30 74 120/65 01/21/23 11:29 69 98 01/21/23 07:34 36.9 C 16 136/65 01/21/23 07:24 90 136/65 01/21/23 07:22 75 136/93 Transfer of Care Handoff Completed per policy Notes Mental Status: alert / awake / arousable and participated in evaluation Patient Amnestic to Procedure: No Nausea / Vomiting: adequately controlled Pain: adequately controlled Airway Patency, RR, SpO2: stable & adequate BP & HR: stable & adequate Hydration State: stable & adequate Neuraxial Anesthesia: was administered and sensory block is resolving Anesthetic Complications: no major complications apparent and Pt Satisfied with anesthetic care
--- NOTE | 2023-01-21 11:37 | Operative Report ---
PG Post Operative Report Pre & Post Diagnosis Operation Date: 01/21/23 08:55 Pre-Op Diagnosis: History of Section x 1, desires repeat, Request for Sterilization Post-Op Diagnosis: History of Section x 1, desires repeat, Request for Sterilization I identified the patient and participated in the time-out.: Yes Procedure Operation Date: 01/21/23 08:55 Actual Procedures p Repeat lower transverse Section (Delivery of Baby Through Abdominal Incision) delivery of live male child at 1054 - Elly Chu MD, FACOG s With Bilateral Tubal Ligation , lysis of adhesions- Elly Chu MD, FACOG Surgeon Elly Chu MD, FACOG Flight Technician Estimated Blood Loss 600 Findings Consistent with Post-Op Diagnosis viable male infant in cephalic position. apgars 8/9. nl uterus tubes and ovaries. Omentum adhesed to the anterior abdominal wall. Fluids 1300cc uop 125cc Specimens bilateral tubes Drains rios Anesthesia Type Spinal Complications none Disposition Accompanied Patient To Recovery: Yes Disposition: L&D Indications Patient is a 27yowf with iup at 39 3/7 weeks who presents for repeat c/s and desire for sterilization Description of Procedure The patient was taken to the operating room where she was identified verbally and by bracelet. She was seated on the operating table where a spinal anesthetic was placed by anesthesia. She was then placed in the supine position with a leftward tilt. A Rios catheter was placed sterilely. the patient was prepped and draped in a normal standard fashion. the anesthetic was tested and found to be adequate. A time-out was held, identifying correct patient, procedure, positioning and preoperative antibiotics. There were no concerns. A Pfannenstiel skin incision was made with a knife and taken down to the underlying layer of fascia with the knife and Bovie electrocautery. Bleeding was attended to with the Bovie. The fascia was incised in the midline with the knife and taken out laterally with scissors. The superior edge of the fascial incision was grasped, elevated and the underlying layer of rectus muscle was taken off bluntly and with scissors. In a similar fashion, the inferior edge of the fascial incision was grasped, elevated and the underlying layer of rectus muscle was taken off bluntly and with scissors. The muscles were sharply in the midline with scissors. The peritoneum was entered sharply. Adhesions of the omentum were taken down with Bovie cautery. The incision was then stretched. The bladder blade was placed. The vesicouterine peritoneum was identified, entered with scissors and taken out laterally with scissors. The bladder flap was created digitally A hysterotomy incision was scored with a knife and the incision was stretched superiorly and inferiorly with the boomboat operator's fingers. The operators hand was placed into the incision and the head was delivered atraumatically. No nuchal cord. The nose and mouth were bulb suctioned. the rest of the was then delivered without difficulty. The nose and mouth were again bulb suctioned. The cord was clamped and cut and the infant was then handed off to the awaiting machining technician for drying and attention. Cord blood and segment were obtained. The placenta was Manually extracted. The uterus was exteriorized and cleared of all clot and debris with moistened laparotomy sponges. There were no adhesions to the uterine body. The hysterotomy incision was repaired in one, running locked layer. Hemostasis was noted to be good. Posterior cul-de-sac was irrigated and cleared of all clot and debris. The tubes were then excised entirely with the Ligasure. Hemostasis was good. The hysterotomy incision was again inspected and some oozing edges were attended to with Bovie.. the uterus was reinteriorized. Hysterotomy incision was again inspected and found to be hemostatic. The omental adhesions were freed up from the fascia. Rectus muscles were reapproximated with several interrupted stitches of 0 Vicryl. The fascia was then reapproximated with 0 Vicryl starting at the edges and meeting in the midline. The subcuticular tissues were copiously irrigated and bleeding was attended to with cautery. The skin was then closed with 4-0 Vicryl in a subcuticular fashion. All sponge, lap and needle counts were correct x 2. the patient was taken to the recovery room in stable condition. I attest to the content of the Intraoperative Record and any orders documented therein. Any exceptions are noted below. OB Procedure Charges [id number] Add on Tubal for C/S
[2023-01-21] MEDS: KETOROLAC 30 MG/ML VIAL IV PRN (12:11)
[2023-01-21] MEDS ORDERED: MAGNESIUM HYDROXIDE SUSP 30 ML UDC PO PRN (14:45)
[2023-01-21] MEDS ORDERED: HYDROCORTISONE ACETATE 25 MG SUPP PR PRN (14:45)
[2023-01-21] MEDS ORDERED: BENZOCAINE 20% SPRY 85 APPLN/85 GM CAN EXT PRN (14:45)
[2023-01-21] MEDS ORDERED: DIPHTHERIA/TETANUS/PERTUSSIS Vaccine (Tdap, Age 7+yrs) 0.5mL SYR/VL IM ONE (14:45)
[2023-01-21] MEDS ORDERED: SENNA 8.6 MG TAB PO PRN (14:45)
[2023-01-21] MEDS: OXYTOCIN 20 UNITS in LACTATED RINGER'S 1,000 ML IV SCH ×2 (15:21→23:08)
[2023-01-21] MEDS ORDERED: NALBUPHINE HCL 5 MG in SYRINGE 0 ML IV PRN (16:06)
[2023-01-21] MEDS: SIMETHICONE 80 MG CHEW PO SCH ×2 (16:53→20:41)
[2023-01-21] MEDS: DOCUSATE SODIUM 100 MG CAP PO SCH (20:41)
[2023-01-22] MEDS: KETOROLAC 30 MG/ML VIAL IV PRN (04:01)
[2023-01-22] MEDS ORDERED: ONDANSETRON INJ 2 MG/ML 2 ML VIAL IV PRN (04:40)
[2023-01-22] MEDS ORDERED: PROMETHAZINE HCL 25 MG in SODIUM CHLORIDE 0.9% 50 ML IV PRN (04:40)
[2023-01-22] MEDS ORDERED: diphenhydrAMINE Capsule 25 MG CAP PO PRN (04:40)
[2023-01-22] MEDS ORDERED: diphenhydrAMINE 50 MG/ML VIAL IV PRN (04:40)
[2023-01-22] MEDS ORDERED: KETOROLAC 30 MG/ML VIAL IV PRN (04:40)
[2023-01-22] MEDS ORDERED: MEPERIDINE HCL 50 MG/ML CARP IV PRN (04:40)
[2023-01-22] MEDS ORDERED: CITRIC ACID/SODIUM CITRATE 15 ML UDC PO SCH (06:00)
--- NOTE | 2023-01-22 06:35 | Obstetrical Progress Note ---
Date of Service <Praveena Mason MD - Last Filed: 01/22/23 07:18> January 22, 2023 Assessment & Plan <Praveena Mason MD - Last Filed: 01/22/23 07:18> (1) Encounter for assessment: Plan Patient with the above mentioned history and findings was evaluated at bedside and found awake, alert, oriented in all spheres, afebrile, and in no acute distress. Vital signs showed no fever and blood pressures remained stable Her blood type is B negative (s/p Rhogam on 11/08/2022) with baby's blood type being B positive. She is to receive another dose of Rhogam. Today's hemoglobin is adequate at 10.4 g/dL. She is GBS positive treated intrapartum, and rubella immune. Overall, patient is doing well clinically. Patient encouraged to ambulate and progress her diet as she is able to tolerate since she is tolerating the crackers without subsequent nausea. Will continue care. All questions were answered. <Elly Chu MD, FACOG - Last Filed: 01/22/23 07:20> (1) Encounter for assessment: Subjective <Praveena Mason MD - Last Filed: 01/22/23 07:18> Nellie is a 27 y/o female who is POD #1 following repeat delivery at 39 3/7 weeks with bilateral tubal ligation. She reports feeling well overall this morning. Refers moderate abdominal cramping & 4/10 pain well managed on analgesics. Voiding spontaneously. Has passed flatus but has not yet had a bowel movement. Tolerating crackers and fluids overnight and able to ambulate some. Has some persistent lochia with some improvement this morning. Currently bottle feeding. Constitutional: no fever, no chills or no sweats Denies shortness of breath or difficulty breathing. Cardiovascular: no chest pain or no palpitations Breast: no breast pain Genitourinary (female): no dysuria Neurologic: no headache(s) Denies changes in vision. Physical Exam <Praveena Mason MD - Last Filed: 01/22/23 07:18> General: Alert. Oriented to person, time, and place. Afebrile. No acute distress. Eyes: pupils equal and reactive to light bilaterally, extraocular movements int act. Cardiac: Regular rate and rhythm, no murmurs/rubs/gallops. Respiratory: Clear to auscultation bilaterally. No increased work of breathing. Symmetrical chest rise. No respiratory distress. Abdomen: Soft, nontender, nondistended. Bowel sounds present. Low transverse surgical scar clean, without surrounding erythema or suppuration, and healing well. Uterus: Uterine fundus firm, mildly tender, and palpable below umbilicus. Lower Extremities: Bilateral swelling with no pitting. No deep calf pain. Yana's negative bilaterally. Psych: Euthymic affect. Mood and affect congruence. Regular speech rate and content. Results & Data <Praveena Mason MD - Last Filed: 01/22/23 07:18> Vital Signs (Past 12 Hours) Vital Signs Temp Pulse Resp BP Pulse Ox O2 Del Method 01/22/23 04:20 36.6 C 82 18 124/85 95 Room Air 01/22/23 04:03 18 95 01/22/23 02:44 16 96 01/22/23 01:30 18 94 01/22/23 00:05 18 94 01/21/23 23:00 18 95 01/21/23 22:59 36.5 C 75 18 126/86 95 Room Air 01/21/23 22:00 18 94 01/21/23 21:00 16 94 01/21/23 20:30 Room Air 01/21/23 20:30 36.4 C L 84 18 135/88 94 Room Air 01/21/23 20:00 18 96 01/21/23 19:00 18 94 Supervising Physician <Elly Chu MD, FACOG - Last Filed: 01/22/23 07:20> Co-Signing Physician Notes Resident Physician Supervision Note: I interviewed and examined the patient. Discussed with Dr. Mason and agree with findings and plan as documented in the note. Any exceptions or clarifications are listed here: Patient doing well. Postop day 1. Routine care. Documented By: Elly Chu MD, FACOG Resident Activity Tracking <Praveena Mason MD - Last Filed: 01/22/23 07:18> Resident Involvement: Resident Care Provided Care Provided: OB Delivery
[2023-01-22 06:36] LABS: Basophils # (auto) 0.02 K/uL (0.00-0.20); Basophils % (auto) 0.3 %; Eosinophils # (auto) 0.09 K/uL (0.00-0.50); Eosinophils % (auto) 1.3 %; Hematocrit (blood only) 32.3 % (37.0-47.0); Hemoglobin 10.4 g/dl (12.0-16.0); Immature Granulocytes # (auto) 0.04 K/uL (0.01-0.20); Immature Granulocytes % (auto) 0.6 %; Lymphocytes # (auto) 1.05 K/uL (1.20-3.40); Lymphocytes % (auto) 14.7 %; Mean Corpuscular Hemoglobin 25.5 pg (25.0-34.0); Mean Corpuscular Hgb Conc 32.2 g/dL (32.0-36.0); Mean Corpuscular Volume 79.2 fL (80.0-100.0); Mean Platelet Volume 12.4 fL (9.4-12.4); Monocytes # (auto) 0.38 K/uL (0.11-0.59); Monocytes % (auto) 5.3 %; Neutrophils # (auto) 5.57 K/uL (1.40-6.50); Neutrophils % (auto) 77.8 %; Platelet Count 126 K/uL (130-400); RDW Coefficient of Variation 16.1 % (11.5-14.5); RDW Standard Deviation 46.1 fL (36.4-46.3); Red Blood Count 4.08 M/uL (4.20-5.40); White Blood Count 7.15 K/ul (4.8-10.8)
[2023-01-22] MEDS: PRENATAL VITAMIN 1 TAB PO SCH (09:05)
[2023-01-22] MEDS: oxyCODONE/ACETAMINOPHEN 5mg/325mg TAB PO PRN ×3 (09:05→21:08)
[2023-01-22] MEDS: FERROUS SULFATE 325 MG TAB PO SCH (09:05)
[2023-01-22] MEDS: IBUPROFEN 600 MG TAB PO PRN ×3 (09:05→21:09)
[2023-01-22] MEDS: SIMETHICONE 80 MG CHEW PO SCH ×4 (09:05→20:59)
[2023-01-22] MEDS: DOCUSATE SODIUM 100 MG CAP PO SCH ×2 (09:06→21:00)
[2023-01-22] MEDS ORDERED: bisacodyL 5 MG TABEC PO SCH (20:00)
[2023-01-23] MEDS: oxyCODONE/ACETAMINOPHEN 5mg/325mg TAB PO PRN ×3 (01:08→08:43)
[2023-01-23] MEDS: IBUPROFEN 600 MG TAB PO PRN ×3 (01:08→08:43)
[2023-01-23 06:12] LABS: Hematocrit (blood only) 31.8 % (37.0-47.0); Hemoglobin 10.3 g/dl (12.0-16.0)
--- NOTE | 2023-01-23 07:26 | Obstetrical Progress Note ---
Date of Service <Praveena Mason MD - Last Filed: 01/23/23 07:27> January 23, 2023 Assessment & Plan <Praveena Mason MD - Last Filed: 01/23/23 07:27> (1) Encounter for assessment: Plan Patient with the above mentioned history and findings was evaluated at bedside and found awake, alert, oriented in all spheres, afebrile, and in no acute distress. Vital signs showed no fever and blood pressures remained stable Her blood type is B negative (s/p Rhogam on 11/08/2022 and pp on 01/22/23) with baby's blood type being B positive. Today's hemoglobin is adequate at 10.3 g/dL. She is GBS positive treated intrapartum, and rubella immune. Overall, patient is doing well clinically. Will discharge today. Counseled she should schedule an appointment with her OB in 6 weeks for her pp evaluation. All questions were answered. <Shilpa Arauz MD, FACOG - Last Filed: 01/23/23 07:36> (1) Encounter for assessment: Subjective <Praveena Mason MD - Last Filed: 01/23/23 07:27> Nellie is a 27 y/o female who is POD #2 following repeat delivery at 39 3/7 weeks with bilateral tubal ligation. She reports feeling well overall this morning. Refers moderate abdominal cramping & 5/10 pain well managed on analgesics. Voiding spontaneously. Has passed flatus and has had a bowel movement. Tolerating meals overnight and able to ambulate some. Has some persistent lochia with some improvement this morning. Currently bottle feeding. Constitutional: no fever, no chills or no sweats Denies shortness of breath or difficulty breathing. Cardiovascular: no chest pain or no palpitations Breast: no breast pain Genitourinary (female): no dysuria Neurologic: no headache(s) Denies changes in vision. Physical Exam <Praveena Mason MD - Last Filed: 01/23/23 07:27> General: Alert. Oriented to person, time, and place. Afebrile. No acute distress. Eyes: pupils equal and reactive to light bilaterally, extraocular movements intact. Cardiac: Regular rate and rhythm, no murmurs/rubs/gallops. Respiratory: Clear to auscultation bilaterally. No increased work of breathing. Symmetrical chest rise. No respiratory distress. Abdomen: Soft, nontender, nondistended. Bowel sounds present. Low transverse surgical scar clean, without surrounding erythema or suppuration, and healing well. Uterus: Uterine fundus firm, mildly tender, and palpable below umbilicus. Lower Extremities: Bilateral swelling with no pitting. No deep calf pain. Yana's negative bilaterally. Psych: Euthymic affect. Mood and affect congruence. Regular speech rate and content. Results & Data <Praveena Mason MD - Last Filed: 01/23/23 07:27> Vital Signs (Past 12 Hours) Vital Signs Temp Pulse Resp BP Pulse Ox O2 Del Method 01/23/23 00:35 36.4 C L 73 17 128/83 97 Room Air 01/22/23 21:10 36.4 C L 89 16 144/91 H 97 Room Air Supervising Physician <Shilpa Arauz MD, FACOG - Last Filed: 01/23/23 07:36> Co-Signing Physician Notes Resident Physician Supervision Note: I interviewed and examined the patient. Discussed with Dr. Mason and agree with findings and plan as documented in the note. Any exceptions or clarifications are listed here: [None] Documented By: Shilpa Arauz MD, FACOG Resident Activity Tracking <Praveena Mason MD - Last Filed: 01/23/23 07:27> Resident Involvement: Resident Care Provided Care Provided: OB Delivery
[2023-01-23] MEDS: PRENATAL VITAMIN 1 TAB PO SCH (08:42)
[2023-01-23] MEDS: SIMETHICONE 80 MG CHEW PO SCH (08:42)
[2023-01-23] MEDS: FERROUS SULFATE 325 MG TAB PO SCH (08:43)
[2023-01-23] MEDS: DOCUSATE SODIUM 100 MG CAP PO SCH (08:43)
[2023-01-23] MEDS ORDERED: bisacodyL 10 MG SUPP PR PRN (14:01)
--- NOTE | 2023-01-24 13:33 | Discharge Summary ---
Date of Service January 24, 2023 Admission HPI Per Admitting Provider Patient is a 27yowf with iup at 39 3/7 weeks who presents for repeat c/s and sterilization. Had her first c/s after a failed induction of labor in her last GDM on insulin, last us 12/28--efw 75%, AC 91%. Notes her sugars have been fairly well controlled. Desires permanent sterilization. and Delivery Plans GDM with previous growth ultrasounds at 24 weeks. HTN issues PP--meds for a few weeks but none now. Obesity (BMI between 35-39 @ beginning of ) *Growth US @ 32 wks *Weekly NSTs @ 36wks Previous for failure to induce. Patient plans repeat c/s.--desires TL C/S WITH TUBAL SCHEDULED FOR 01/21/[address] RENETTA gaston unvaccinated--recommend Need for rhogam due to RH negative mother -Rhogam given 11/08/22- MK GDM on insulin *Wkly NSTs @32wks and Twice wkly @36wks *Serial growth US @28wks *Deliver by [facility] GBS positive in Urine *Treat in labor OB Labs: Blood Type B Negative 06/25/22 Antibody Screen NEGATIVE 11/08/22 Hemoglobin 10.7 g/dl (12.0-16.0) L 11/08/22 Hematocrit 31.1 % (37.0-47.0) L 11/08/22 Mean Corpuscular Volume 78.4 fL (80.0-100.0) L 06/25/22 Platelet Count 206 K/uL (130-400) 06/25/22 Rubella IgG Antibody Immune (Immune) 06/25/22 Rapid Plasma Reagin Nonreactive (Nonreactive) 06/25/22 Hepatitis B Surface Antigen. NON-REACTIVE (NON-REACTIVE) 06/25/22 Hepatitis C Antibody (EIA) NON-REACTIVE (NON-REACTIVE) 06/25/22 HIV (1&2) Ag and Ab Confirmation NON-REACTIVE (NON-REACTIVE) 06/25/22 Maternal Serum Alpha Fetoprotein 38.2 ng/mL 08/14/22 OB Optional Labs: Chlamydia trachomatis RNA Not Detected (NotDetected) 06/25/22 Neisseria gonorrhoeae RNA Not Detected (NotDetected) 06/25/22 Alpha Fetoprotein Triple Screen SEE NOTE 08/14/22 Labs Reviewed: Horizon 14-negative--mln cfdna-low risk--mln gbs positive in urine--[facility] Discharge Data Consultations 01/21/23 07:16 Consult Anesthesiology Stat Procedures Performed Operation Date: 01/21/23 08:55 Actual Procedures p Section (Delivery of Baby Through Abdominal Incision) [place] of live male child at 1054 [place] [facility] [place] Bilateral [place]al Ligation - Elyl Chu MD, [facility] Course (1) with 39 completed weeks gestation: (2) Previous delivery affecting : (3) GDM (gestational diabetes mellitus): Plan Patient was admitted and under went a repeat lower transverse c/s without issues. Also had bilateral salpingectomy. There were omental adhesions that made the surgery difficult. Normal uterus/tubes/ovaries. EBL--600ccPostoperative course uncomplicated--tolerated a regular diet, ambulated without difficulty, pain controlled with oral pain meds, rios removed and voided. discharge h/h 10.3/31.8. Will f/u in 6 weeks. admitted 01/21, d/c 01/23. Coding Level of Care Code None Diagnoses with 39 completed weeks gestation Z3A.39 Previous delivery affecting O34.219 GDM (gestational diabetes mellitus) O24.419
== END 2023-01-23 12:54 | disposition home or self-care (01) | DRG 785 ==
LOC: 4S1 07:08 → EDSTATUS 07:30 → 4E2 14:56
PROC: M.PPTLD (2023-01-21 08:55)